=== PATIENT | female | born 1965 | race Caucasian/White ===

== ENCOUNTER → 2017-01-31 | Outpatient (CLI) | payer BC ==
--- NOTE | 2017-02-01 12:41 | MM ---
Reason for exam: screening (asymptomatic). Last mammogram was performed 1 year and 6 months ago. History: Patient is postmenopausal and has history of other cancer at age 46. Family history of breast cancer in maternal cousin at age 40, breast cancer in maternal aunt at age 34, premenopausal breast cancer in mother, and breast cancer in maternal aunt. Physical Findings: A clinical breast exam by your physician is recommended on an annual basis and results should be correlated with mammographic findings. MG 3D Screening Mammo W/Cad Bilateral CC and MLO view(s) were taken. Prior study comparison: July 28, 2015, bilateral MG 3d screening mammo w/cad. May 27, 2014, bilateral MG diagnostic mammo w CAD JOSH. The breast tissue is heterogeneously dense. This may lower the sensitivity of mammography. No significant changes when compared with prior studies. ASSESSMENT: Benign, BI-RAD 2 RECOMMENDATION: Routine screening mammogram of both breasts in 1 year.
== END ==
LOC: RADMAMWWP 10:54
PROVIDERS: ATTEND Obstetrics & Gynecology
DX: Z12.31 Encounter for screening mammogram for malignant neoplasm of breast (principal)
CPT/HCPCS: 77063; G0202

== ENCOUNTER → 2017-05-22 | Outpatient (CLI) | payer BC ==
[2017-05-22 12:46] LABS: Blood Urea Nitrogen 19 mg/dL (7-17)
== END | disposition home or self-care (01) ==
LOC: LABWHC1 11:12
PROVIDERS: ATTEND Psychiatry & Neurology Neurology
DX: Z13.89 Encounter for screening for other disorder (principal)
CPT/HCPCS: 36415; 82565; 84520

== ENCOUNTER → 2017-12-13 | Outpatient (CLI) | payer BC ==
--- NOTE | 2017-12-13 08:55 | CT ---
EXAMINATION TYPE: CT soft tissue neck w con DATE OF EXAM: 12/13/2017 HISTORY: Bulge Rt clavicle area, tenderness COMPARISON: NONE CT DLP: 390.3 mGycm. Automated Exposure Control for Dose Reduction was Utilized. TECHNIQUE: CT scan of the neck is performed with IV Contrast, patient injected with 100 mL of Isovue 300, axial images are obtained, coronal and sagittal reformatted images are reviewed. FINDINGS: A BB is placed at site of palpable abnormality right proximal clavicle axial image 18. Ther e is no suspicious solid or cystic mass or abnormal fluid collections identified at this level. Right -sided sternoclavicular joint and proximal clavicle are felt within normal limits and symmetric to th e opposite left side. Airway: There is prominence of the adenoid tonsils in the posterior nasopharynx and prominence of the hard palate causing nasopharyngeal airway narrowing. Correlate to exclude acute tonsillitis or upper respiratory infection. Region of epiglottis and vallecula is felt within normal limits. Thyroid glan d is not well visualized with tiny residual tissue seen axial image 31. There is mild to moderate und erlying emphysematous change in the visualized upper lungs. Parotid/submandibular glands: No gross abnormality seen. Carotid/Vascular Structures: No significant plaque at carotid bulb level bilaterally. Osseous Structures: Mild to moderate disc space narrowing with mild spurring C5-C6 level is seen. Other: There are some scattered prominent but subcentimeter lymph nodes throughout the neck bilateral ly. There is patchy opacity in the left maxillary sinus. IMPRESSION 1. No suspicious abnormality is seen at area of clinical concern in right proximal clavicle region to account for patient's symptoms. 2. Note is made of small 9 x 4 mm area of thyroid tissue axial image 31, patient has history of thyro idectomy, if this was for cancer, recurrent neoplasm cannot be excluded. Differential includes tiny f ocus of residual thyroid tissue. 3. Possible tonsillitis, correlate clinically. Possible mild acute left maxillary sinusitis, correlat e clinically.
== END | disposition home or self-care (01) ==
LOC: RADCTMAIN 07:36
PROVIDERS: ATTEND Otolaryngology
DX: R22.1 Localized swelling, mass and lump, neck (principal); M54.2 Cervicalgia; Z90.89 Acquired absence of other organs
CPT/HCPCS: 70491; Q9967

== ENCOUNTER → 2018-03-14 | Outpatient (CLI) | payer BC ==
--- NOTE | 2018-03-14 10:08 | BD ---
EXAMINATION TYPE: Axial Bone Density DATE OF EXAM: 03/14/2018 COMPARISON: Exam of 2016 CLINICAL HISTORY: Postmenopausal female. Osteoporosis screening. Height: 5 FT 3 1/2 IN Weight: 189 FRAX RISK QUESTIONS: History of Fracture in Adulthood: YES Secondary Osteoporosis: 3. Menopause before 45: YES Current Tobacco Use: YES RISK FACTORS HISTORY OF: Active: YES Postmenopausal woman: TOTAL HYST AGE 23 Poor Health: FAIR MEDICATIONS: Thyroid Medications: YES Which medication: SYNTHROID How Lon YEARS Additional Medications: SYNTHROID. LOSARTIN Additional History: PT HAS MS EXAM MEASUREMENTS: Bone mineral densitometry was performed using the Seguricel System. Bone mineral density as measured about the Lumbar spine is: ----- L1-L4(G/cm2): 1.072 T Score Values are as follows: ----- L2: -1.1 ----- L3: -0.2 ----- L4: -2.0 ----- L1-L4: -0.9 Bone mineral density has: DECREASED -0.6 % since study of: 2015 Bone mineral density about the R hip (g/cm2): 0.941 Bone mineral density about the L hip (g/cm2): 0.945 T Score values are as follows: -----R Neck: -0.7 -----L Neck: -0.7 -----R Total: 0.2 -----L Total: -0.1 Bone mineral density has: DECREASED -1.0 % since study of: 2015 IMPRESSION: Normal (Values between +1 and -1 indicate normal bone mass). Values approach osteopenia. Consider rep eating this study in 5 years or sooner if there is some new clinical indication. NOTE: T-SCORE=SD OF THE YOUNG ADULT MEAN.
--- NOTE | 2018-03-21 08:38 | MM ---
Reason for exam: screening (asymptomatic). Last mammogram was performed 1 year and 1 month ago. History: Patient is postmenopausal and has history of other cancer at age 46. Family history of breast cancer in maternal cousin at age 40, breast cancer in maternal aunt at age 34, premenopausal breast cancer in mother, and breast cancer in maternal aunt. MG 3D Screening Mammo W/Cad Bilateral CC and MLO view(s) were taken. Prior study comparison: January 31, 2017, bilateral MG 3d screening mammo w/cad. July 28, 2015, bilateral MG 3d screening mammo w/cad. The breast tissue is heterogeneously dense. This may lower the sensitivity of mammography. No suspicious abnormality. No significant changes when compared with prior studies. ASSESSMENT: Negative, BI-RAD 1 RECOMMENDATION: Routine screening mammogram of both breasts in 1 year.
== END | disposition home or self-care (01) ==
LOC: RADMAMWWP 08:07
PROVIDERS: ATTEND Family Medicine
DX: Z12.31 Encounter for screening mammogram for malignant neoplasm of breast (principal); Z13.820 Encounter for screening for osteoporosis
CPT/HCPCS: 77063; 77067; 77080

== ENCOUNTER → 2018-05-07 | Outpatient (CLI) | payer BC | LOC: LABWHC1 13:20 | PROVIDERS: ATTEND Physician Assistant | DX: Z01.818 Encounter for other preprocedural examination (principal); N28.9 Disorder of kidney and ureter, unspecified | CPT/HCPCS: 36415; 82565; 84520 ==

== ENCOUNTER → 2018-05-12 | Outpatient (CLI) | payer BC ==
[2018-05-12 15:24] LABS: Basophils # (A) 0.1 k/uL (0-0.2); Basophils % (A) 1 %; Eosinophils # (A) 0.1 k/uL (0-0.7); Eosinophils % (A) 2 %; HCT 41.6 % (34.0-46.0); HGB 13.6 gm/dL (11.4-16.0); Lymphocytes # (A) 3.1 k/uL (1.0-4.8); Lymphocytes % (A) 36 %; MCH 29.4 pg (25.0-35.0); MCHC 32.6 g/dL (31.0-37.0); MCV 90.1 fL (80.0-100.0); Mean Platelet Volume 6.8; Monocytes # (A) 0.4 k/uL (0-1.0); Monocytes % (A) 5 %; Neutrophils # (A) 4.9 k/uL (1.3-7.7); Neutrophils % (A) 56 %; Platelet Count 323 k/uL (150-450); RBC 4.61 m/uL (3.80-5.40); RDW 13.1 % (11.5-15.5); WBC 8.6 k/uL (3.8-10.6)
[2018-05-12 17:13] LABS: Erythrocyte Sedimentation Rate 21 mm/hr (0-20)
[2018-05-13 00:25] LABS: Cyclic Citrullinated Pep IgG NEGATIVE (NEGATIVE)
[2018-05-13 02:06] LABS: Rheumatoid Factor 13 IU/mL (0-15)
[2018-05-13 12:37] LABS: ALT 19 U/L (8-44); AST 19 U/L (13-35); C Reactive Protein 1.4 mg/dL (0.0-0.8); Carbon Dioxide 27.3 mmol/L (21.6-31.8); Chloride 107 mmol/L (96-109); Creatine Kinase 50 U/L (26-186); Glucose 97 mg/dL (70-110); Potassium 4.3 mmol/L (3.5-5.5); Sodium 141 mmol/L (135-145); Uric Acid 4.6 mg/dL (2.9-7.7)
[2018-05-14 12:19] LABS: HLA B27 NEGATIVE
== END | disposition home or self-care (01) ==
LOC: LABWHC1 14:23
PROVIDERS: ATTEND Orthopaedic Surgery
DX: G35 Multiple sclerosis (principal); E07.9 Disorder of thyroid, unspecified; I10 Essential (primary) hypertension; S43.21 Anterior subluxation and dislocation of sternoclavicular joint; S23.42 Sprain of sternum; M25.512 Pain in left shoulder
CPT/HCPCS: 36415; 80048; 82009; 82306; 82550; 83520; 84439; 84443; 84450; 84460; 84550; 85025; 85652; 86038; 86140; 86200; 86431; 86812

== ENCOUNTER 2018-05-20 07:55 | Day surgery (SDC) | payer BC ==
[2018-05-20 08:24] VITALS: TEMP 98.1
[2018-05-20] MEDS ORDERED: ALPRAZolam 0.5 MG TAB PO ONE (08:28)
[2018-05-20 10:16] VITALS: BP 115/59; PULSE 90; RESP 14
[2018-05-20 13:59] LABS: RBC, Body Fluid 3740 /uL
[2018-05-20 14:01] LABS: Nucleated Cells, Body Fluid 30 /uL
[2018-05-20 14:06] LABS: Mononuclear WBC,Body Fluid 59 %; Polynuclear WBC,Body Fluid 41 %; Total Cells Counted,Body Fluid 100
[2018-05-20 14:21] LABS: RBC, Body Fluid 7600 /uL
[2018-05-20 14:22] LABS: Appearance,BF Blood Tinged
[2018-05-20 14:25] LABS: Total Cells Counted,Body Fluid 100
[2018-05-20 14:26] LABS: Nucleated Cells, Body Fluid 15 /uL
--- NOTE | 2018-05-20 15:26 | US ---
Ultrasound guided aspiration right sternoclavicular joint Date: 05/20/2018 History: 52-year-old female with right shoulder pain. Procedure: 1. Ultrasound of the right sternoclavicular joint 2. Ultrasound-guided right SC joint aspiration. TECHNIQUE: The procedure, risks, and alternatives, were discussed with the patient, who requested that priti grace The consent form was signed, and teach-back occurred. The site/side of the procedure was marked wi th a line with participation by the patient. The accompanying paperwork was verified for consistency. A directed history and physical exam was performed prior to the procedure. Medication reconciliation was performed by ancillary personnel. A critical pause was performed with assisting personnel just prior to the procedure and the patient's identity was confirmed using 2 identifiers. Imaging guidance was utilized to select the precise skin entry point just prior to the procedure. Sca nning demonstrates pronounced distention of the right sternoclavicular joint. The distended joint cap jody is targeted for aspiration. The right sternoclavicular joint was prepped and draped in the usual sterile fashion and local 1% lid ocaine anesthesia was instilled. Under ultrasound guidance, an 18 gauge spinal needle was introduced into the right sternoclavicular j oint where aspiration was attempted. This yielded only a couple of drops of blood-tinged fluid. The n eedle and syringe were washed with sterile saline, and the wash was prepared as a specimen to send fo r laboratory analysis. Subsequently, 3 mL of sterile saline was injected into the sternoclavicular joint and subsequent aspi ration yielded a total of 5 mL of blood-tinged fluid which is also prepared as a specimen and sent fo r laboratory analysis. The needle was then removed. The patient tolerated the procedure well. There were no immediate complications. After the procedure, the patient's condition was unchanged. Es timated blood loss was minimal. IMPRESSION: Distended right sternoclavicular joint. Aspiration yielded only a couple of drops of blood-tinged flu id. The joint contents are likely too thick for adequate aspiration. 2 washes of the joint with steri le saline are prepared and sent for laboratory analysis.
== END 2018-05-20 10:15 | disposition home or self-care (01) ==
LOC: RADPROMAIN 07:55
PROVIDERS: ATTEND Orthopaedic Surgery
DX: S43.21 Anterior subluxation and dislocation of sternoclavicular joint (principal); S23.42 Sprain of sternum; G35 Multiple sclerosis; I10 Essential (primary) hypertension; E07.9 Disorder of thyroid, unspecified; Z79.899 Other long term (current) drug therapy; Z79.890 Hormone replacement therapy; Z91.81 History of falling
CPT/HCPCS: 20611; 87070; 87075; 87205; 89050; 89060

== ENCOUNTER → 2018-09-01 | Outpatient (CLI) | payer BC ==
[2018-09-01 12:21] LABS: Basophils % (A) 1 %; Eosinophils # (A) 0.2 k/uL (0-0.7); Eosinophils % (A) 3 %; HCT 40.7 % (34.0-46.0); HGB 13.3 gm/dL (11.4-16.0); Lymphocytes # (A) 2.5 k/uL (1.0-4.8); Lymphocytes % (A) 36 %; MCH 29.5 pg (25.0-35.0); MCHC 32.7 g/dL (31.0-37.0); Mean Platelet Volume 6.9; Monocytes # (A) 0.4 k/uL (0-1.0); Monocytes % (A) 5 %; Neutrophils # (A) 3.6 k/uL (1.3-7.7); Neutrophils % (A) 53 %; Platelet Count 340 k/uL (150-450); RBC 4.52 m/uL (3.80-5.40); RDW 14.3 % (11.5-15.5); WBC 6.8 k/uL (3.8-10.6)
[2018-09-01 13:31] LABS: Erythrocyte Sedimentation Rate 25 mm/hr (0-20)
[2018-09-01 16:23] LABS: African American GFR (CKD) 96.2 (60.0-200.0); Albumin 4.3 g/dL (3.80-4.90); Anion Gap 5.8 mmol/L (4.00-12.00); C Reactive Protein 1.1 mg/dL (0.0-0.8); Calcium 9.8 mg/dL (8.7-10.3); Carbon Dioxide 28.2 mmol/L (21.6-31.8); Potassium 4.1 mmol/L (3.5-5.5)
[2018-09-01 16:36] LABS: Cardiolipin Ab IgA Interp NEGATIVE (NEGATIVE); Cardiolipin IgA Antibody 1.7 U/mL; Cyclic Citrull Pep IgG Unit <0.5 U/mL; Cyclic Citrullinated Pep IgG NEGATIVE (NEGATIVE)
[2018-09-01 16:37] LABS: Cardiolipin Ab IgG Interp NEGATIVE (NEGATIVE)
[2018-09-01 16:38] LABS: Cardiolipin Ab IgM Interp Positive (NEGATIVE); Cardiolipin IgM Antibody 39.3 U/mL
[2018-09-01 17:01] LABS: Rheumatoid Factor 10 IU/mL (0-15)
[2018-09-01 17:09] LABS: Vitamin D 25 Hydroxy 37.8 ng/mL (30.0-100.0)
[2018-09-01 17:22] LABS: Beta 2 Microglobulin 1.46 mg/L (0.61-2.37)
[2018-09-02 13:21] LABS: APTT 45 Sec(s) (<43); APTT 1:1 Mix 48 Sec(s) (<43); DRVVT 1:1 Mix 42 Sec(s) (<44); Dilute Russell Viper Venom 53 Sec(s) (<44); Hexagonal Phase Neutralization Positive (Negative)
[2018-09-03 13:42] LABS: Vitamin D, 1, 25-Dihydroxy 56 pg/mL (20 - 79)
== END | disposition home or self-care (01) ==
LOC: LABWHC1 11:27
PROVIDERS: ATTEND Internal Medicine Rheumatology
DX: M25.50 Pain in unspecified joint (principal); M06.4 Inflammatory polyarthropathy; Z79.899 Other long term (current) drug therapy
CPT/HCPCS: 36415; 80051; 82040; 82232; 82306; 82310; 82565; 82652; 84450; 84460; 84520; 85025; 85300; 85613; 85652; 85730; 86140; 86147; 86200; 86431; 86480; 86780

== ENCOUNTER → 2018-11-21 | Outpatient (CLI) | payer BC ==
--- NOTE | 2018-11-21 16:44 | MR ---
MR pelvis with and without contrast HISTORY: Arthritis, chronic bilateral low back pain Multiplanar multisequence and postcontrast images through the pelvis following 8.5 cc Gadavist IV Correlation to prior MRI 05/09/2018 Hip joints show normal appearance. There is no evident joint effusion. Articular cartilage signal is maintained. No evident labral tear. There is some increased signal present at the level of the gluteu s tendons insertions bilaterally, there may be partial tears or trochanteric bursitis. Degenerative disc changes are present in the visualized spine with some facet arthropathy. In the sig moid colon, there is diverticular change. Sacroiliac joints are symmetric, there is no evident erosion, hypertrophic change, or ankylosis. No a bnormal enhancement following contrast administration. IMPRESSION: Degenerative disc disease. Possible gluteus medius medius tendon insertional partial tear s or trochanteric bursitis. Diverticulosis and additional findings above.
== END | disposition home or self-care (01) ==
LOC: RADMRIMAIN 08:42
PROVIDERS: ATTEND Internal Medicine Rheumatology
DX: M54.5 Low back pain (principal); G89.29 Other chronic pain
CPT/HCPCS: 72197; A9585

== ENCOUNTER → 2019-01-07 | Outpatient (CLI) | payer BC ==
[2019-01-07 13:47] LABS: African American GFR (CKD) >90 (>60 ml/min/1.73 sqM); Anion Gap 7 mmol/L; Blood Urea Nitrogen 17 mg/dL (7-17); Carbon Dioxide 30 mmol/L (22-30); Chloride 104 mmol/L (98-107); Potassium 4.3 mmol/L (3.5-5.1); Sodium 141 mmol/L (137-145)
[2019-01-07 13:48] LABS: HCT 41.2 % (34.0-46.0); HGB 13.4 gm/dL (11.4-16.0); MCH 29.6 pg (25.0-35.0); MCHC 32.5 g/dL (31.0-37.0); MCV 90.9 fL (80.0-100.0); Platelet Count 407 k/uL (150-450); RBC 4.54 m/uL (3.80-5.40); RDW 12.9 % (11.5-15.5); WBC 9.1 k/uL (3.8-10.6)
== END | disposition home or self-care (01) ==
LOC: LABWHC1 12:21
PROVIDERS: ATTEND Internal Medicine Interventional Cardiology
DX: Z01.812 Encounter for preprocedural laboratory examination (principal); I10 Essential (primary) hypertension
CPT/HCPCS: 36415; 80051; 82565; 84520; 85027

== ENCOUNTER 2019-01-13 06:26 | Day surgery (SDC) | payer BC ==
[2019-01-09 12:27] VITALS: BMI 33.1
[2019-01-13] MEDS ORDERED: ALPRAZolam 0.5 MG TAB PO PRN (06:37)
[2019-01-13] MEDS ORDERED: SODIUM CHLORIDE 0.9% 1,000 ML in EMPTY BAG 1 BAG IV ONE (06:37)
[2019-01-13] MEDS ORDERED: ALPRAZolam 0.25 MG TAB PO PRN (06:37)
[2019-01-13] MEDS ORDERED: NITROGLYCERIN SL TABS 0.4 MG TAB SUBLINGUAL PRN (06:37)
[2019-01-13] MEDS ORDERED: ASPIRIN 325 MG TAB PO ONE (07:00)
[2019-01-13] MEDS ORDERED: ATORVASTATIN 80 MG TAB PO ONE (07:00)
[2019-01-13 07:01] VITALS: RESP 16; TEMP 98.2
[2019-01-13] MEDS ORDERED: HEPARIN SODIUM 1,000 UN/ML (10ML VL) ONE (07:31)
[2019-01-13] MEDS ORDERED: LIDOCAINE 1% INJ 10MG/ML (20 ML MDV) ONE (07:31)
[2019-01-13] MEDS ORDERED: VERAPAMIL 2.5 MG/ML 2 ML AMP ONE (07:31)
[2019-01-13] MEDS ORDERED: MIDAZOLAM 2 MG/2 ML VIAL IV ONE (07:43)
[2019-01-13] MEDS ORDERED: LIDOCAINE 1% INJ 10MG/ML (20 ML MDV) SQ ONE (07:43)
[2019-01-13] MEDS: VERAPAMIL SYRINGE (5 MG/10 ML) INTRAARTER ONE ×2 (07:45→07:54)
[2019-01-13] MEDS ORDERED: IOPAMIDOL-370 125ML BTL INJ ONE (07:54)
[2019-01-13] MEDS ORDERED: RX INFO: IV CONTRAST WAS GIVEN 1 EACH MISC MISCELLANE PRN (08:00)
[2019-01-13] MEDS ORDERED: SODIUM CHLORIDE 0.9% 1,000 ML IV SCH (08:00)
--- NOTE | 2019-01-13 08:06 | P.PCN ---
Date of Procedure: 01/13/19 Operative Findings: CARDIAC CATHETERIZATION PERFORMING PHYSICIAN: Prasanth Odell MD, RPVI PROCEDURE PERFORMED: 1. Selective right and left coronary angiogram 2. Left heart catheterization INDICATION: This is a pleasant 53-year-old female patient with a past medical history significant for smoking and significant family history of coronary artery disease continues to have chest discomfort with exertion concerning for severe underlying coronary artery disease. Because of that a heart catheterization was advised. COMPLICATION: None APPROACH: Right radial artery LEVEL OF SEDATION: Moderate sedation duration of 30 minutes PROCEDURE DESCRIPTION: After obtaining an informed consent, the patient was brought to cardiac laborer [facility]. Local anesthesia was performed using lidocaine subcutaneously. The right radial artery was cannulated using Seldinger technique, the guidewire passed easily, following that we advanced a 5-Latvian sheath dilator assembly, the wire and dilator were removed and sheath was flushed. Following that, 2 mg of verapamil along with 5000 unit heparin were given. Selective right and left coronary angiogram using a 6-Latvian JR4 and JL 3.5 catheters. Following that we did left heart catheterization using 6-Latvian pigtail catheter. The procedure was completed there was no complication. SELECTIVE CORONARY ANGIOGRAM: The right coronary artery: Is a large caliber vessel and a dominant vessel. The proximal RCA is angiographically normal. The mid RCA has intermediate disease appeared to be in the range of 40-50%. The RCA distally appeared to be angiographically normal and bifurcates into PDA and PLV branches and both appeared to be an giographically normal. Left main: Short but angiographically normal. The left circumflex: It is a large caliber vessel. Its angiographically normal. In the midportion gives rises into a large OM branch which seems to be angiographically normal. The left anterior descending artery: It is a large caliber vessel. Its angiographically normal. In the proximal portion gives rises into a diagonal branch which seems to be angiographically normal. HEMODYNAMICS: The LVEDP was 10 mmHg was about 10 mm gradient across aortic valve CONCLUSION: 1. Intermediate disease involving the mid RCA. 2. Normal LVEDP 3. Mild gradient across aortic valve POSTPROCEDURE MANAGEMENT: 1. Aggressive cholesterol control 2. Smoking cessation 3. Follow-up with the patient
[2019-01-13 12:03] VITALS: PULSE 74
[2019-01-13 14:21] VITALS: BP 116/75
== END 2019-01-13 13:30 | disposition home or self-care (01) ==
LOC: CATHCVL 06:26
PROVIDERS: ATTEND Internal Medicine Interventional Cardiology
DX: I25.110 Atherosclerotic heart disease of native coronary artery with unstable angina pectoris (principal); I10 Essential (primary) hypertension; E78.00 Pure hypercholesterolemia, unspecified; Z82.49 Family history of ischemic heart disease and other diseases of the circulatory system; E78.5 Hyperlipidemia, unspecified; F17.210 Nicotine dependence, cigarettes, uncomplicated; Z79.890 Hormone replacement therapy; Z79.899 Other long term (current) drug therapy
CPT/HCPCS: 93458; C1769; C1894; J2250; J2001; J1644; Q9967

== ENCOUNTER → 2019-03-02 | Outpatient (CLI) | payer BC ==
[2019-03-02 12:01] LABS: Appearance,Urine Clear (Clear); Bacteria,Urine Rare /hpf; Bilirubin,Urine Negative (Negative); Blood,Urine Negative (Negative); Color,Urine Yellow; Glucose,Urine (UA) Negative (Negative); Ketones,Urine Negative (Negative); Leukocyte Esterase,Urine Moderate (Negative); Mucus,Urine Rare /hpf; Nitrite,Urine Negative (Negative); Protein,Urine Negative (Negative); RBC,Urine 1 /hpf (0-5); Specific Gravity,Urine 1.025 (1.001-1.035); Squamous Epithelial Cell,Urine 6 /hpf (0-4); Urobilinogen,Urine <2.0 mg/dL (<2.0); WBC,Urine 1 /hpf (0-5)
[2019-03-02 12:39] LABS: Basophils % (A) 0 %; Eosinophils # (A) 0.2 k/uL (0-0.7); Eosinophils % (A) 2 %; HCT 42.4 % (34.0-46.0); HGB 13.7 gm/dL (11.4-16.0); Lymphocytes # (A) 2.3 k/uL (1.0-4.8); Lymphocytes % (A) 29 %; MCHC 32.4 g/dL (31.0-37.0); MCV 92.7 fL (80.0-100.0); Mean Platelet Volume 7.6; Monocytes # (A) 0.4 k/uL (0-1.0); Monocytes % (A) 5 %; Neutrophils # (A) 4.9 k/uL (1.3-7.7); Neutrophils % (A) 63 %; Platelet Count 367 k/uL (150-450); RBC 4.57 m/uL (3.80-5.40); RDW 13.3 % (11.5-15.5); WBC 7.8 k/uL (3.8-10.6)
[2019-03-02 14:41] LABS: Erythrocyte Sedimentation Rate 25 mm/hr (0-20)
[2019-03-02 16:45] LABS: African American GFR (CKD) 96.2 (60.0-200.0); Albumin 4.4 g/dL (3.80-4.90); Albumin/Globulin Ratio 1.91 (1.60-3.17); Anion Gap 4.9 mmol/L (4.00-12.00); Calcium 9.4 mg/dL (8.7-10.3); Carbon Dioxide 30.1 mmol/L (21.6-31.8); Chol/HDL Ratio 4.08; Globulin 2.3 g/dL (1.6-3.3); LDL Cholesterol,Calculated 133.4 mg/dL (0.0-131.0); Potassium 4.7 mmol/L (3.5-5.5); Total Bilirubin 0.5 mg/dL (0.3-1.2); Total Protein 6.7 g/dL (6.2-8.2); VLDL Calculation 23.6 mg/dL (5.00-40.00)
[2019-03-02 16:54] LABS: T4, Free (Free Thyroxine) 1.4 ng/dL (0.80-1.80)
[2019-03-02 16:58] LABS: Hemoglobin A1C 6.2 % (4.0-6.0)
== END | disposition home or self-care (01) ==
LOC: LABWHC1 10:17
PROVIDERS: ATTEND Internal Medicine Rheumatology
DX: M06.4 Inflammatory polyarthropathy (principal); Z79.899 Other long term (current) drug therapy
CPT/HCPCS: 36415; 80053; 80061; 81001; 82306; 83036; 84439; 84443; 85025; 85652; 86140

== ENCOUNTER 2019-08-28 10:28 | Inpatient (IN) | payer BC ==
[2019-08-28] MEDS ORDERED: fentaNYL (PF) 50 MCG/ML 2 ML AMP ONE (10:43)
[2019-08-28] MEDS ORDERED: SODIUM CHLORIDE 0.9% 1,000 ML IV ONE (10:44)
[2019-08-28] MEDS ORDERED: LIDOCAINE 1% INJ 10MG/ML (20 ML MDV) SQ ONE (10:44)
[2019-08-28] MEDS ORDERED: MIDAZOLAM 2 MG/2 ML VIAL IV ONE (10:45)
[2019-08-28] MEDS ORDERED: fentaNYL (PF) 50 MCG/ML 2 ML AMP IV ONE (10:45)
[2019-08-28] MEDS ORDERED: TICAGRELOR 90 MG TAB ONE (10:54)
[2019-08-28] MEDS ORDERED: BIVALIRUDIN BOLUS 250 MG/50 ML IV ONE (10:58)
[2019-08-28] MEDS ORDERED: TICAGRELOR 90 MG TAB PO ONE (11:00)
[2019-08-28] MEDS ORDERED: BIVALIRUDIN 250 MG in SODIUM CHLORIDE 0.9% 50 ML IV ONE (11:03)
[2019-08-28] MEDS ORDERED: ATROPINE SULFATE 0.1 MG/ML 10ML SYRINGE IV ONE (11:07)
[2019-08-28] MEDS ORDERED: IOPAMIDOL-370 100ML BTL INJ ONE (11:10)
[2019-08-28 11:29] LABS: Basophils % (A) 0 %; Eosinophils # (A) 0.1 k/uL (0-0.7); Eosinophils % (A) 2 %; HCT 37.9 % (34.0-46.0); HGB 12.4 gm/dL (11.4-16.0); Lymphocytes # (A) 1.6 k/uL (1.0-4.8); Lymphocytes % (A) 25 %; MCH 29.3 pg (25.0-35.0); MCHC 32.8 g/dL (31.0-37.0); MCV 89.5 fL (80.0-100.0); Mean Platelet Volume 7.1; Monocytes # (A) 0.3 k/uL (0-1.0); Monocytes % (A) 5 %; Neutrophils # (A) 4.2 k/uL (1.3-7.7); Neutrophils % (A) 66 %; Platelet Count 305 k/uL (150-450); RBC 4.23 m/uL (3.80-5.40); RDW 12.9 % (11.5-15.5); WBC 6.4 k/uL (3.8-10.6)
[2019-08-28] MEDS ORDERED: ATROPINE SULFATE 0.1 MG/ML 10ML SYRINGE IV PRN (11:35)
[2019-08-28] MEDS ORDERED: NITROGLYCERIN SL TABS 0.4 MG TAB SUBLINGUAL PRN (11:35)
[2019-08-28] MEDS ORDERED: RX INFO: IV CONTRAST WAS GIVEN 1 EACH MISC MISCELLANE PRN (11:35)
[2019-08-28] MEDS ORDERED: MAG HYDROX/AL HYDROX/SIMETH 30 ML CUP PO PRN (11:35)
[2019-08-28 11:44] LABS: ALT 13 U/L (4-34); AST 21 U/L (14-36); African American GFR (CKD) >90 (>60 ml/min/1.73 sqM); Albumin 3.5 g/dL (3.5-5.0); Alkaline Phosphatase 61 U/L (38-126); Anion Gap 7 mmol/L; Blood Urea Nitrogen 17 mg/dL (7-17); Calcium 8.2 mg/dL (8.4-10.2); Carbon Dioxide 22 mmol/L (22-30); Chloride 107 mmol/L (98-107); Glucose 130 mg/dL (74-99); Non-African American GFR(CKD) >90 (>60 ml/min/1.73 sqM); Potassium 3.5 mmol/L (3.5-5.1); Sodium 136 mmol/L (137-145); Total Bilirubin 0.5 mg/dL (0.2-1.3); Total Protein 6.5 g/dL (6.3-8.2)
[2019-08-28] MEDS ORDERED: SODIUM CHLORIDE 0.9% 1,000 ML IV SCH (11:45)
[2019-08-28] MEDS: NICOTINE 21MG/24HR PATCH TRANSDERM SCH (15:16)
[2019-08-28 15:38] LABS: Glucose,Whole Blood 92 mg/dL (75-99)
--- NOTE | 2019-08-28 15:59 | CONS ---
CONSULTATION CHIEF COMPLAINT: Chest pain. This is a 54-year-old lady with history of hypertension, dyslipidemia, smoking and strong family history of premature coronary artery disease who presents to hospital with chest pain. She states that she started having precordial chest pressure early this morning and it gradually got worse and worse around 8 to 9:00. She called EMS, where EMS an EKG that showed acute inferior wall myocardial infarction and she was sent to cardiac catheterization lab urgently. I am seeing her in the rn lab. The patient is in pain and distress but hemodynamically stable. Her EKG shows acute inferior wall myocardial infarction. I advised her to undergo emergent cardiac catheterization with a view to performing angioplasty. PAST MEDICAL HISTORY: Past medical history is significant for hypertension, dyslipidemia. MEDICATIONS: I do not have a list with me. ALLERGIES: DENIES ANY. FAMILY HISTORY: Significant for premature coronary artery disease. SOCIAL HISTORY: Significant for smoking. There is no history of EtOH abuse or drug abuse. REVIEW OF SYSTEMS: HEENT is unremarkable. CARDIAC: As described above. RESPIRATORY: Negative. GI: Negative. GENITOURINARY: Negative. ALLERGY: Negative. IMMUNOLOGY: Negative. SKIN: Negative. MUSCULOSKELETAL: Significant for arthritis. PSYCHOSOCIAL: Negative. ENDOCRINE: Negative. DERMATOLOGY: Negative. HEMATOLOGICAL: Significant for some coagulopathy. CONSTITUTIONAL: Negative. ONCOLOGICAL: Negative. PHYSICAL EXAMINATION: Comfortable at rest. Heart rate is 70 beats per minute. Blood pressure is 140/70, respiratory rate is 18. There is no jugular venous distention. Carotid upstroke is normal. There is no bruit. Chest exam reveals good air entry bilaterally. Heart exam reveals first and second heart sounds. No gallop. Abdomen is soft. Examination of extremities did not reveal any edema. Peripheral pulses are felt. EKG shows acute inferior wall myocardial infarction. LABORATORY DATA: Labs are not done. ASSESSMENT: Acute inferior wall myocardial infarction. PLAN: Patient will undergo emergent cardiac catheterization. MMODL / IJN: [id number] /
--- NOTE | 2019-08-28 15:59 | CC ---
CARDIAC CATHETERIZATION REPORT CARDIAC CATHETERIZATION: INDICATION: Acute inferior wall myocardial infarction. PROCEDURE NOTE: After obtaining informed consent, left heart catheterization and coronary angiogram were performed via the right femoral artery using standard James catheters. Patient tolerated the procedure well without any obvious immediate complications. FINDINGS: HEMODYNAMICS: Left ventricular end-diastolic pressure is 18 to 20 mm. There is no significant gradient across the aortic valve. LEFT VENTRICULOGRAM: Left ventriculogram was not performed. ANGIOGRAPHIC DATA: LEFT MAIN CORONARY ARTERY: Left main coronary artery is a normal-sized vessel and is free of stenosis. It divides into left anterior descending coronary artery and circumflex coronary artery. LAD shows a focal area of 70% stenosis involving mid portion. Circumflex coronary artery and its branches are free of significant disease. RIGHT CORONARY ARTERY: Right coronary artery is totally occluded proximally. There are [id number] collaterals. CONCLUSION: 1. Acutely occluded proximal right coronary artery. 2. Seventy percent stenosis involving mid LAD. PLAN: Patient will undergo angioplasty of the right coronary artery and the LAD will be stented at a later time. MMODL / IJN: [id number] /
--- NOTE | 2019-08-28 16:07 | PTCA ---
PERCUTANEOUSTRANS CORORONARY ANGIOGRAPHY Ms. Rodriguez is a 54-year-old female with a history of hypertension, chronic tobacco use and family history of premature coronary artery disease who presented with an acute inferior wall myocardial infarction, underwent cardiac catheterization by Dr. Mena and was found to have a totally occluded right coronary artery. In view of that, recommendation was made regarding angioplasty and stenting. The procedure, its risks and complications were discussed with the patient, who was in full understanding and agreement. PROCEDURE DESCRIPTION: A 6-Polish FR4 guiding catheter was introduced into the system. After cannulating the right coronary ostium, a 0.014 balanced medium weight J-wire was advanced across the lesion, positioned distally, then a 2.5 x 12 mm Trek balloon was advanced and two inflations to a maximum of 10 atmospheres were done. Following that, a 3.0 x 23 mm Xience Tavia stent was deployed, post-dilated at 16 atmospheres. Following that the balloon was removed and a 3.25 x 15 mm NC Trek balloon was advanced and two inflations to a maximum of 14 atmospheres were done. After the last inflation, after appropriate wait, the balloon and the guidewire were withdrawn back into the guiding catheter. Images were obtained and repeated. Those images revealed stable successful stenting. At that point, the guiding catheter, the balloon and the guidewire were removed. The sheath was removed. Hemostasis was obtained with deployment of Angio-Seal. There was no immediate complication. Patient was returned to her room in stable condition. Of note, the patient received Angiomax per protocol as well as an oral loading dose of Brilinta. Her chest discomfort resolved during the procedure and her EKG changes improved. RESULTS: Successful stenting of a totally occluded mid right coronary artery with reduction of stenosis from 100% to 0%. RECOMMENDATIONS: Patient will be continued on aspirin, Brilinta, beta blockers and statin. The importance of dual antiplatelet treatment was discussed with the patient and her family, who are in full understanding and agreement. Duration of procedure was 22 minutes. MMODL / ANDREWN: [id number] /
--- NOTE | 2019-08-28 16:13 | LTR ---
August 28, 2019 To: Dr. Quan Re: Aysha Rodriguez (61) Dear Dr. Quan: I had the pleasure of performing coronary angioplasty and stenting on Mrs. Rodriguez at [facility] on August 27, and a full copy of the procedure note will be forwarded to you. In brief, she was found to have an acutely occluded mid right coronary artery and underwent successful stenting of that vessel using a drug-eluting stent. I am hopeful that this procedure will stabilize her status. Thank you for allowing me to participate in her care. Please feel free to call with any questions. Sincerely yours, Juliocesar Teresa M.D. NELLY / OSMANY: [id number] /
[2019-08-28] MEDS: METOPROLOL TARTRATE 25 MG TAB PO SCH (20:35)
[2019-08-28] MEDS: TICAGRELOR 90 MG TAB PO SCH (20:35)
[2019-08-28] MEDS: ATORVASTATIN 80 MG TAB PO SCH ×2 (20:37→21:47)
[2019-08-28] MEDS: ZOLPIDEM 5 MG TAB PO PRN (22:31)
[2019-08-29 06:09] LABS: HCT 37.7 % (34.0-46.0); HGB 12.9 gm/dL (11.4-16.0); MCH 31.4 pg (25.0-35.0); MCHC 34.2 g/dL (31.0-37.0); MCV 91.9 fL (80.0-100.0); Mean Platelet Volume 7.1; Platelet Count 294 k/uL (150-450); RBC 4.11 m/uL (3.80-5.40); RDW 12.8 % (11.5-15.5); WBC 7.5 k/uL (3.8-10.6)
[2019-08-29 06:36] LABS: African American GFR (CKD) >90 (>60 ml/min/1.73 sqM); Anion Gap 5 mmol/L; Blood Urea Nitrogen 12 mg/dL (7-17); Calcium 8.6 mg/dL (8.4-10.2); Carbon Dioxide 27 mmol/L (22-30); Chloride 108 mmol/L (98-107); Cholesterol 173 mg/dL (<200); Glucose 131 mg/dL (74-99); HDL Cholesterol 31 mg/dL (40-60); LDL Cholesterol,Calculated 112 mg/dL (0-99); Non-African American GFR(CKD) >90 (>60 ml/min/1.73 sqM); Potassium 4.4 mmol/L (3.5-5.1); Sodium 140 mmol/L (137-145); Triglycerides 150 mg/dL (<150)
[2019-08-29] MEDS: LEVOTHYROXINE 137 MCG TAB PO SCH (06:36)
[2019-08-29] MEDS: ASPIRIN 81 MG PO SCH (09:01)
[2019-08-29] MEDS: METOPROLOL TARTRATE 25 MG TAB PO SCH ×2 (09:01→20:52)
[2019-08-29] MEDS: TICAGRELOR 90 MG TAB PO SCH ×2 (09:01→20:53)
[2019-08-29] MEDS: NICOTINE 21MG/24HR PATCH TRANSDERM SCH (09:01)
[2019-08-29] MEDS: LOSARTAN 25 MG TAB PO SCH (09:01)
--- NOTE | 2019-08-29 11:05 | PN ---
PROGRESS NOTE Aysha is a 54-year-old lady who is admitted to hospital with acute anterior wall myocardial infarction. Underwent emergent cardiac catheterization and angioplasty of right coronary artery. This morning, she is doing fine and is free of chest pain, difficulty in breathing or palpitations. EXAM: Comfortable at rest. Vital signs are stable. There is no jugular venous distention. Carotid upstroke is normal. There is no bruit. Chest exam reveals good air entry bilaterally. Heart exam reveals first and second heart sounds. No gallop. Exam of extremities did not reveal any edema. Groin is free of bleeding or hematoma. LABS: Show a peak troponin of 13. LDL cholesterol is 112, potassium is 4.4, creatinine is 0.5, hemoglobin is 12.9. ASSESSMENT: Acute inferior wall myocardial infarction, cath and angioplasty of [place] right coronary artery. The patient is doing well. She will continue current medications. I will review the 2D echo that was done today. She has a lesion in the LAD that will be addressed in the outpatient setting. She is currently on aspirin, Lipitor, Cozaar, Lopressor, and Brilinta, which will be continued. MMODL / IJN: [id number] /
[2019-08-29 13:08] VITALS: BMI 34.0
--- NOTE | 2019-08-29 13:09 | ECHOF ---
Referral Reason:mi MEASUREMENTS -------- HEIGHT: 162.6 cm WEIGHT: 88.5 kg BP: 112/61 RVIDd: 3.2 cm (< 3.3) IVSd: 1.2 cm (0.6 - 1.1) LVIDd: 3.7 cm (3.9 - 5.3) LVPWd: 1.3 cm (0.6 - 1.1) IVSs: 1.7 cm LVIDs: 2.7 cm LVPWs: 1.7 cm LA Diam: 3.4 cm (2.7 - 3.8) LAESV Index (A-L): 21.61 ml/m Ao Diam: 3.3 cm (2.0 - 3.7) AV Cusp: 1.7 cm (1.5 - 2.6) MV EXCURSION: 15.618 mm (> 18.000) MV EF SLOPE: 71 mm/s (70 - 150) EPSS: 1.1 cm MV E Micah: 0.97 m/s MV DecT: 193 ms MV A Micah: 1.01 m/s MV E/A Ratio: 0.96 FINDINGS -------- Sinus rhythm. This was a technically adequate study. The left ventricular size is normal. There is borderline concentric left ventricular hypertrophy. Overall left ventricular systolic function is normal with, an EF between 60 - 65 %. The right ventricle is normal in size. Normal LA size by volume 22+/-6 ml/m2. The right atrium is normal in size. Interatrial and interventricular septum intact. There is mild aortic valve sclerosis. The mitral valve leaflets are mildly thickened. There is trace to mild mitral regurgitation. The tricuspid valve appears structurally normal. Trace/mild (physiologic) pulmonic regurgitation. The aortic root size is normal. Normal inferior vena cava with normal inspiratory collapse consistent with estimated right atrial pre ssure of 5 mmHg. The inferior vena cava is mildly dilated. There is no pericardial effusion. CONCLUSIONS -------- 1. Sinus rhythm. 2. This was a technically adequate study. 3. The left ventricular size is normal. 4. There is borderline concentric left ventricular hypertrophy. 5. Overall left ventricular systolic function is normal with, an EF between 60 - 65 %. 6. The right ventricle is normal in size. 7. Normal LA size by volume 22+/-6 ml/m2. 8. The right atrium is normal in size. 9. Interatrial and interventricular septum intact. 10. There is mild aortic valve sclerosis. 11. The mitral valve leaflets are mildly thickened. 12. There is trace to mild mitral regurgitation. 13. The tricuspid valve appears structurally normal. 14. Trace/mild (physiologic) pulmonic regurgitation. 15. The aortic root size is normal. 16. Normal inferior vena cava with normal inspiratory collapse consistent with estimated right atrial pressure of 5 mmHg. 17. The inferior vena cava is mildly dilated. 18. There is no pericardial effusion. PROGRAM MANAGEMENT MANAGER: Elaine Song RDCS
--- NOTE | 2019-08-29 19:06 | P.HPIM ---
History of Present Illness This is a pleasant 54 years old female with past medical history of hypertension, hypothyroidism, cigarette smoker, strong family history of premature coronary artery disease, presents because of chest pressure found to have elevated troponin 0.08, 13 and 11. Patient has been evaluated by sports therapist and found to have inferior myocardial infarction and STEMI. Patient underwent emergent cardiac angiography with right coronary artery disease status post stenting of the RCA. Postprocedure was in the ICU, she is comfortable with no chest pain or dyspnea. Her vitals are stable. Labs with CBC and BMP are unremarkable Review of Systems CONSTITUTIONAL: No fever, no malaise, no fatigue. HEENT: No recent visual problems or hearing problems. Denied any sore throat. CARDIOVASCULAR: No orthopnea, PND, no palpitations, no syncope. PULMONARY: No shortness of breath, no cough, no hemoptysis. GASTROINTESTINAL: No diarrhea, no nausea, no vomiting, no abdominal pain. Normoactive bowel sounds. NEUROLOGICAL: No headaches, no weakness, no numbness. HEMATOLOGICAL: Denies any bleeding or petechiae. GENITOURINARY: Denies any burning micturition, frequency, or urgency. MUSCULOSKELETAL/RHEUMATOLOGICAL: Denies any joint pain, swelling, or any muscle pain. ENDOCRINE: Denies any polyuria or polydipsia. Past Medical History Past Medical History: Eye Disorder, Hypertension, Musculoskeletal Disorder, Neurologic Disorder, Thyroid Disorder Additional Past Medical History / Comment(s): OCC FAST HR. RRMS. HX PRE- MELANOMA OF SKIN. HX GOITER. arthiritis History of Any Multi-Drug Resistant Organisms: None Reported Past Surgical History: Section, Cholecystectomy, Hysterectomy, Orthopedic Surgery Additional Past Surgical History / Comment(s): THYROIDECTOMY. LT FOOT FUSION. Left CTR. LT CATARACT EXC. Past Anesthesia/Blood Transfusion Reactions: No Reported Reaction Past Psychological History: No Psychological Hx Reported Smoking Status: Current every day smoker Past Alcohol Use History: None Reported Past Drug Use History: None Reported - Past Family History Father Family Medical History: Cancer, Coronary Artery Disease (CAD), Hypertension, Myocardial Infarction (LA) Mother Family Medical History: Cancer, Deep Vein Thrombosis (DVT) Medications and Allergies Home Medications Medication Instructions Recorded Confirmed Type Levothyroxine Sodium [Synthroid] 137 mcg PO DAILY 11/08/15 08/28/19 History Hydroxychloroquine Sulfate 200 mg PO BID 01/09/19 08/28/19 History [Plaquenil] Verapamil Sr [Isoptin Sr] 180 mg PO DAILY 01/13/19 08/28/19 History Ergocalciferol [Vitamin D2 50,000 unit PO Q7D 08/28/19 08/28/19 History (DRISDOL)] Hydrochlorothiazide [Hydrodiuril] 12.5 mg PO DAILY 08/28/19 08/28/19 History Losartan Potassium [Cozaar] 50 mg PO DAILY 08/28/19 08/28/19 History Allergies Allergy/AdvReac Type Severity Reaction Status Date / Time adhesive AdvReac RED, Verified 08/28/19 11:30 ITCHING STEROIDS AdvReac Rapid Uncoded 01/09/19 12:10 Heart Rate,redness Physical Exam Vitals: Vital Signs Temp Pulse Resp BP Pulse Ox 08/29/19 14:00 75 19 94 L 08/29/19 13:00 65 11 L 96 08/29/19 12:00 98.4 F 70 17 124/71 94 L 08/29/19 11:00 67 13 94 L 08/29/19 10:00 80 18 130/75 95 08/29/19 09:00 75 14 91 L 08/29/19 08:00 97.8 F 69 15 122/85 96 08/29/19 07:00 87 11 L 105/61 97 08/29/19 06:00 68 18 112/61 95 08/29/19 05:00 79 12 120/63 98 08/29/19 04:00 75 8 L 97 08/29/19 03:00 89 24 100/52 94 L 08/29/19 02:00 76 17 103/62 96 08/29/19 01:00 84 18 111/55 93 L 08/29/19 00:00 98 F 75 20 102/49 93 L 08/28/19 23:03 66 19 93 L 08/28/19 23:00 60 21 95/49 94 L 08/28/19 22:30 59 L 16 127/113 97 08/28/19 22:00 64 15 133/74 94 L 08/28/19 21:30 68 15 122/78 97 08/28/19 21:00 82 20 122/78 91 L 08/28/19 20:30 70 15 124/74 95 06/26/20 20:00 98.5 F 67 14 133/67 92 L 08/28/19 19:30 72 18 122/65 98 08/28/19 19:00 62 17 119/63 98 08/28/19 18:30 61 13 140/62 99 08/28/19 18:00 73 14 120/83 95 08/28/19 17:30 58 L 12 120/70 98 Intake and Output 08/29/19 08/29/19 08/29/19 06:59 14:59 22:59 Intake Total 300 360 100 Balance 300 360 100 Intake: IV 300 360 100 Sodium Chloride 0.9% 1, 300 360 100 000 ml @ 100 mls/hr IV . Q10H SALAS Rx#:[id number] Other: # Voids 1 2 Weight 89.9 kg 89.9 kg GENERAL: The patient is alert and oriented x3, not in any acute distress. Well developed, well nourished. HEENT: Pupils are round and equally reacting to light. EOMI. No scleral icterus. No conjunctival pallor. Normocephalic, atraumatic. No pharyngeal erythema. No thyromegaly. CARDIOVASCULAR: S1 and S2 present. No murmurs, rubs, or gallops. PULMONARY: Chest is clear to auscultation, no wheezing or crackles. ABDOMEN: Soft, nontender, nondistended, normoactive bowel sounds. No palpable organomegaly. MUSCULOSKELETAL: No joint swelling or deformity. EXTREMITIES: No cyanosis, clubbing, or pedal edema. NEUROLOGICAL: Gross neurological examination did not reveal any focal deficits. SKIN: No rashes. No petechiae Results CBC & Chem 7: 08/29/19 05:47 08/29/19 05:47 Labs: Abnormal Lab Results - Last 24 Hours (Table) 08/28/19 08/28/19 08/29/19 Range/Units 17:04 23:08 05:47 Chloride 108 H (98-107) mmol/L Glucose 131 H (74-99) mg/dL Troponin I 13.200 H* 11.600 H* (0.000-0.034) ng/mL Triglycerides 150 H (<150) mg/dL LDL Cholesterol, Calc 112 H (0-99) mg/dL HDL Cholesterol 31 L (40-60) mg/dL Thrombosis Risk Factor Assmnt - Choose All That Apply Any of the Below Risk Factors Present?: Yes Each Factor Represents 1 point: Acute LA, Age 41-60 years, Medical pt on bed rest, Obesity (BMI >25) Other Risk Factors: No Other congenital or acquired thrombophilia - If yes, enter type in comment: No Thrombosis Risk Factor Assessment Total Risk Factor Score: 4 Thrombosis Risk Factor Assessment Level: Moderate Risk Assessment and Plan Assessment: -Inferior STEMI, status post cardiac cath and angioplasty with stent placement in the RCA. Cardiology on the case. She is on aspirin and Brillinta -Nicotine dependence, nicotine patch -Hypertension on lisinopril and metoprolol -Strong family history of premature coronary artery disease -Hypothyroidism, on replacement therapy DVT prophylaxis: Subcutaneous heparin GI prophylaxis: Pepcid
[2019-08-29] MEDS: HEPARIN SODIUM,PORCINE 5,000 UNIT/ML 1 ML VIAL SQ SCH (20:53)
[2019-08-29] MEDS: ATORVASTATIN 80 MG TAB PO SCH (20:53)
[2019-08-29] MEDS: FAMOTIDINE 20 MG/2 ML VIAL IV SCH (20:53)
[2019-08-29] MEDS: HYDROCHLOROTHIAZIDE 12.5 MG CAP PO SCH (20:54)
[2019-08-29] MEDS: ZOLPIDEM 5 MG TAB PO PRN (23:16)
[2019-08-30 05:36] LABS: African American GFR (CKD) >90 (>60 ml/min/1.73 sqM); Anion Gap 3 mmol/L; Blood Urea Nitrogen 16 mg/dL (7-17); Carbon Dioxide 27 mmol/L (22-30); Chloride 107 mmol/L (98-107); Glucose 107 mg/dL (74-99); Non-African American GFR(CKD) >90 (>60 ml/min/1.73 sqM); Potassium 3.9 mmol/L (3.5-5.1); Sodium 137 mmol/L (137-145)
[2019-08-30] MEDS: LEVOTHYROXINE 137 MCG TAB PO SCH (06:42)
[2019-08-30] MEDS: HYDROCHLOROTHIAZIDE 12.5 MG CAP PO SCH (09:59)
[2019-08-30] MEDS: TICAGRELOR 90 MG TAB PO SCH ×2 (10:00→21:01)
[2019-08-30] MEDS: LOSARTAN 25 MG TAB PO SCH (10:00)
[2019-08-30] MEDS: METOPROLOL TARTRATE 25 MG TAB PO SCH ×2 (10:00→21:01)
[2019-08-30] MEDS: ASPIRIN 81 MG PO SCH (10:00)
[2019-08-30] MEDS: NICOTINE 21MG/24HR PATCH TRANSDERM SCH (10:01)
[2019-08-30] MEDS: HEPARIN SODIUM,PORCINE 5,000 UNIT/ML 1 ML VIAL SQ SCH ×2 (10:01→20:51)
[2019-08-30] MEDS: FAMOTIDINE 20 MG/2 ML VIAL IV SCH (10:01)
--- NOTE | 2019-08-30 10:11 | PN ---
PROGRESS NOTE Aysha is a 54-year-old lady that is admitted to hospital with acute inferior wall myocardial infarction underwent cardiac catheterization and angioplasty of [place] right coronary artery. This morning, she is doing well and is free of symptoms. She is currently on aspirin, Lipitor 80 daily, HydroDIURIL, Cozaar, Lopressor. EXAM: Comfortable at rest. Vital signs are stable. There is no jugular venous distention. Carotid upstroke is normal. There is no bruit. Chest exam reveals good air entry bilaterally. Heart exam reveals first and second heart sounds. No gallop. Exam of extremities did not reveal any edema. Peripheral pulses are felt. Labs show that the potassium is 3.9. Creatinine is 0.6. Hemoglobin was 12.9 yesterday. ASSESSMENT: Acute inferior wall myocardial infarction status post catheterization and angioplasty of right coronary artery. PLAN: Patient is doing well. Hopefully home tomorrow. MMODL / IJN: [id number] /
--- NOTE | 2019-08-30 13:41 | P.PN ---
Subjective This is a pleasant 54 years old female with past medical history of hypertension, hypothyroidism, cigarette smoker, strong family history of prematu re coronary artery disease, presents because of chest pressure found to have elevated troponin 0.08, 13 and 11. Patient has been evaluated by social service director and found to have inferior myocardial infarction and STEMI. Patient underwent emergent cardiac angiography with right coronary artery disease status post stenting of the RCA. Postprocedure was in the ICU, she is comfortable with no chest pain or dyspnea. Her vitals are stable. Labs with CBC and BMP are unremarkable 08/30/2019 Patient is comfortable sitting in chair. She is troponin the phone. She denies chest pain or dyspnea. No other new complaints. Vitals and labs are stable She is followed closely by social service director, echocardiogram showing ejection fraction of 60-65% Continue on aspirin and Brillinta Objective - Vital Signs Vital signs: Vital Signs Temp 98.5 F 08/30/19 08:00 Pulse 90 08/30/19 08:00 Resp 9 L 08/30/19 08:00 BP 111/63 08/30/19 08:00 Pulse Ox 95 08/30/19 04:00 Intake & Output 08/29/19 08/30/19 08/30/19 18:59 06:59 18:59 Intake Total 460 400 Balance 460 400 Weight 89.9 kg 88.7 kg Intake: IV 460 Sodium Chloride 0.9% 1, 460 000 ml @ 100 mls/hr IV . Q10H SALAS Rx#:[id number] Oral 400 Other: # Voids 2 2 0 - Exam GENERAL: The patient is alert and oriented x3, not in any acute distress. Well developed, well nourished. HEENT: Pupils are round and equally reacting to light. EOMI. No scleral icterus. No conjunctival pallor. Normocephalic, atraumatic. No pharyngeal erythema. No thyromegaly. CARDIOVASCULAR: S1 and S2 present. No murmurs, rubs, or gallops. PULMONARY: Chest is clear to auscultation, no wheezing or crackles. ABDOMEN: Soft, nontender, nondistended, normoactive bowel sounds. No palpable organomegaly. MUSCULOSKELETAL: No joint swelling or deformity. EXTREMITIES: No cyanosis, clubbing, or pedal edema. NEUROLOGICAL: Gross neurological examination did not reveal any focal deficits. SKIN: No rashes. no petechiae. - Labs CBC & Chem 7: 08/29/19 05:47 08/30/19 04:09 Labs: Abnormal Lab Results - Last 24 Hours (Table) 08/30/19 Range/Units 04:09 Glucose 107 H (74-99) mg/dL Assessment and Plan Assessment: -Inferior STEMI, status post cardiac cath and angioplasty with stent placement in the RCA. Cardiology on the case. She is on aspirin and Brillinta -Nicotine dependence, nicotine patch -Hypertension on lisinopril and metoprolol -Strong family history of premature coronary artery disease -Hypothyroidism, on replacement therapy DVT prophylaxis: Subcutaneous heparin GI prophylaxis: Pepcid
[2019-08-30] MEDS: FAMOTIDINE 20 MG TAB PO SCH (21:01)
[2019-08-30] MEDS: ATORVASTATIN 80 MG TAB PO SCH (21:01)
[2019-08-31] MEDS: LEVOTHYROXINE 137 MCG TAB PO SCH (06:11)
[2019-08-31] MEDS: ASPIRIN 81 MG PO SCH (08:24)
[2019-08-31] MEDS: NICOTINE 21MG/24HR PATCH TRANSDERM SCH (08:24)
[2019-08-31] MEDS: METOPROLOL TARTRATE 25 MG TAB PO SCH ×2 (08:24→20:54)
[2019-08-31] MEDS: TICAGRELOR 90 MG TAB PO SCH ×2 (08:25→20:54)
[2019-08-31] MEDS: HEPARIN SODIUM,PORCINE 5,000 UNIT/ML 1 ML VIAL SQ SCH ×2 (08:25→20:44)
[2019-08-31] MEDS: HYDROCHLOROTHIAZIDE 12.5 MG CAP PO SCH (08:25)
[2019-08-31] MEDS: LOSARTAN 25 MG TAB PO SCH (08:25)
[2019-08-31] MEDS: FAMOTIDINE 20 MG TAB PO SCH ×2 (08:25→20:54)
[2019-08-31] MEDS ORDERED: ATORVASTATIN 80 MG TAB PO STA (09:30)
[2019-08-31] MEDS ORDERED: ASPIRIN 325 MG TAB PO STA (09:30)
[2019-08-31] MEDS ORDERED: ALPRAZolam 0.25 MG TAB PO PRN (09:30)
[2019-08-31] MEDS ORDERED: NITROGLYCERIN SL TABS 0.4 MG TAB SUBLINGUAL PRN (09:30)
[2019-08-31] MEDS ORDERED: SODIUM CHLORIDE 0.9% 1,000 ML in EMPTY BAG 1 BAG IV ONE (09:30)
[2019-08-31] MEDS ORDERED: ALPRAZolam 0.5 MG TAB PO PRN (09:30)
--- NOTE | 2019-08-31 11:43 | PN ---
PROGRESS NOTE Aysha is a 54-year-old lady that is admitted to hospital with acute anterior inferior wall myocardial infarction, underwent cardiac catheterization, angioplasty of right coronary artery. This morning, she is doing fine, free of symptoms. She has a lesion in the LAD that will be addressed by Dr. Odell on Saturday. On exam, comfortable at rest. Vital signs are stable. There is no jugular venous distention. Chest exam reveals good air entry bilaterally. Heart exam reveals first and second heart sounds. No gallop. Abdomen is soft, nontender. Exam of extremities did not reveal any edema. Peripheral pulses are felt. ASSESSMENT: 1. Acute inferior wall myocardial infarction status post catheterization and angioplasty. 2. Significant lesion mid LAD. 3. Hypertension. 4. Hypothyroidism. PLAN: Patient will continue current medications. MMODL / IJN: [id number] /
--- NOTE | 2019-08-31 12:14 | PN ---
PROGRESS NOTE Aysha is a 54-year-old lady that is admitted to hospital with acute inferior wall myocardial infarction, underwent cardiac catheterization and angioplasty of right coronary artery. This morning, she is doing well and is free of chest pain or difficulty in breathing. She has a significant lesion in mid LAD and will need angioplasty with stent placement of the same. On exam, the patient is comfortable at rest. Vital signs are stable. Chest exam reveals good air entry bilaterally. Heart exam reveals first and second heart sounds. No gallop. Exam of extremities did not reveal any edema. Peripheral pulses are felt. Labs show a potassium of 3.9. Creatinine is 0.67. Current medications include aspirin, Lipitor, Cozaar, Lopressor and Brilinta. ASSESSMENT: Acute inferior wall myocardial infarction status post catheterization and angioplasty. PLAN: Patient will continue current medications. We will undergo angioplasty of LAD on Saturday by Dr. Odell. NELLY / OSMANY: [id number] /
[2019-08-31] MEDS: ATORVASTATIN 80 MG TAB PO SCH (20:54)
[2019-09-01] MEDS: LEVOTHYROXINE 137 MCG TAB PO SCH (06:45)
[2019-09-01] MEDS: LOSARTAN 25 MG TAB PO SCH (08:30)
[2019-09-01] MEDS: TICAGRELOR 90 MG TAB PO SCH ×2 (08:30→20:00)
[2019-09-01] MEDS: ASPIRIN 81 MG PO SCH (08:30)
[2019-09-01] MEDS: METOPROLOL TARTRATE 25 MG TAB PO SCH ×2 (08:30→20:00)
[2019-09-01] MEDS: NICOTINE 21MG/24HR PATCH TRANSDERM SCH (08:30)
[2019-09-01] MEDS: FAMOTIDINE 20 MG TAB PO SCH ×2 (08:30→20:00)
[2019-09-01] MEDS: HYDROCHLOROTHIAZIDE 12.5 MG CAP PO SCH (08:30)
[2019-09-01] MEDS: HEPARIN SODIUM,PORCINE 5,000 UNIT/ML 1 ML VIAL SQ SCH ×2 (08:32→19:59)
--- NOTE | 2019-09-01 10:50 | P.PN ---
Subjective Progress Note Date: 09/01/19 This is a pleasant 54 female who presented to the hospital with an acute inferior wall ST elevation myocardial infarction. She underwent angioplasty and stenting of the right coronary artery, has a significant lesion in the LAD which will be stented tomorrow. She was seen and examined this mor shauna, denies any chest pain or difficulty in breathing. Blood pressure 128/60 with a heart rate in the 80s 98% on room air. No lab data today. Objective - Vital Signs Vital signs: Vital Signs Temp 97.8 F 09/01/19 08:00 Pulse 81 09/01/19 08:00 Resp 18 09/01/19 08:00 BP 128/64 09/01/19 08:00 Pulse Ox 98 09/01/19 08:00 Intake & Output 08/31/19 09/01/19 09/01/19 18:59 06:59 18:59 Intake Total 400 480 240 Balance 400 480 240 Weight 91.5 kg Intake: Oral 400 480 240 Other: # Voids 2 1 - Exam PHYSICAL EXAMINATION: GENERAL: 54 year old female in no acute distress at the time of my examination HEENT: Head is atraumatic, normocephalic. Pupils equal, round. Sclera anicteric. Conjunctiva are clear. Mucous membranes of the mouth are moist. Neck is supple. There is no elevated jugular venous pressure. No carotid bruit is heard. HEART EXAMINATION: Heart S1, S2 normal. No murmur or gallop heard. CHEST EXAMINATION: Lungs are clear to auscultation and precussion. No chest wall tenderness is noted on palpation or with deep breathing. ABDOMEN: Soft, nontender. Bowel sounds are heard. No organomegaly noted. EXTREMITIES: 2+ peripheral pulses with no evidence of peripheral edema and no calf tenderness noted. NEUROLOGIC patient is awake, alert and oriented 3 . . - Labs CBC & Chem 7: 08/29/19 05:47 08/30/19 04:09 Assessment and Plan Plan: Assessment and plan #[address] elevation myocardial infarction, status post angioplasty and stenting of the RCA. Patient also has a significant lesion in the LAD #2 hyperlipidemia #3 nicotine dependence #4 hypertension Plan Echocardiogram with Doppler study was performed which revealed a normal left ventricular systolic function. From cardiology's perspective, we'll continue the patient on current medication. She will undergo angioplasty and stenting of the LAD tomorrow. DNP note has been reviewed, I agree with a documented findings and plan of care. Patient was seen and examined.
--- NOTE | 2019-09-01 19:06 | P.PN ---
Progress Note - Text Progress Note Date: 08/31/19 Presenting complaint: Chest pain History of presenting complaint: This is a 54-year-old patient of Dr. Quan. Chronic stable medical conditions include hypertension, goiter, arthritis, smoker. Presented with chest pain. Admitted with acute [place]. On August 27 underwent cardiac catheterization with successful stenting of RCA was totally occluded. Also has a LAD lesion. Initial decision was made to to the LAD lesion as an outpatient. Today-. Slight discomfort in the chest. Breathing stable. Plan is for intervention to LAD lesion on Saturday Review of systems: Was done for constitutional, cardiovascular, GI, pulmonary. relevant finding as above Current medications reviewed in today's electronic records On examination: VITAL SIGNS: [98.2, 80, 14, 140-86, 95% on room air] GENERAL APPEARANCE: BMI 34.6, sitting at the edge of the bed not in distress. HEENT: Normal external appearance of nose and ear. Oral cavity normal EYES: Pupils equal. Conjunctiva normal. NECK: JVD not raised. Mass not palpable. RESPIRATORY: Respiratory effort normal. Lungs clear to auscultation. CARDIOVASCULAR: First and second sounds normal. No edema. ABDOMEN: Soft. Liver and spleen not palpable. No tenderness. No mass palpable. PSYCHIATRY: Alert and oriented x3. Mood and affect normal. INVESTIGATIONS, reviewed in the clinical context: Potassium 3.9 creatinine 0.67 Previous testing: Troponin I 0.086, 13.2, 11.6 LDL 112 2-D echocardiogram-EF 60 have is 25% EKG tracing personally reviewed by me-abnormal T waves in inferior leads Assessment: -Acute non-Q-wave inferior wall myocardial infarctions -Coronary artery disease with total occlusion of RCA with successful arthroplasty stenting. Pending further intervention to LAD lesion -Hyperlipidemia -Essential hypertension -Hypothyroid -Chronic nicotine dependence patient cigarette smoker Plan: Patient is due for for coronary intervention on Saturday. Patient's currently on Brilinta, aspirin, Lipitor causes on beta raphael. Also nicotine patch. Care was discussed with the patient.
--- NOTE | 2019-09-01 19:08 | P.PN ---
Progress Note - Text Progress Note Date: 09/01/19 Presenting complaint: Chest pain History of presenting complaint: This is a 54-year-old patient of Dr. Quan. Chronic stable medical conditions include hypertension, goiter, arthritis, smoker. Presented with chest pain. Admitted with acute [place]. On August 27 underwent cardiac catheterization with successful stenting of RCA was totally occluded. Also has a LAD lesion. Initial decision was made to to the LAD lesion as an outpatient. Today-sitting up at the edge of the bed. She described was feeling something in the middle of the chest. Breathing is stable otherwise. Tolerating diet. Review of systems: Was done for constitutional, cardiovascular, GI, pulmonary. relevant finding as above Active Medications Al Hydroxide/Mg Hydroxide (Maalox) 30 ml PO Q4HR PRN PRN Reason: Heartburn Last Admin: 08/28/19 16:00 Dose: 30 ml Documented by: Alprazolam (Xanax) 0.25 mg PO Q6HR PRN PRN Reason: Mild Anxiety Alprazolam (Xanax) 0.5 mg PO Q6HR PRN PRN Reason: Moderate Anxiety Aspirin (Aspirin) 81 mg PO DAILY [facility] Last Admin: 09/01/19 08:30 Dose: 81 mg Documented by: Atorvastatin Calcium (Lipitor) 80 mg PO HS [facility] Last Admin: 08/31/19 20:54 Dose: 80 mg Documented by: Atropine Sulfate (Atropine) 0.5 mg IV ONCE PRN PRN Reason: Symptomatic Bradycardia Famotidine (Pepcid) 20 mg PO Q12HR [facility] Last Admin: 09/01/19 08:30 Dose: 20 mg Documented by: Heparin Sodium (Porcine) (Heparin) 5,000 unit SQ Q12HR [facility] Last Admin: 09/01/19 08:32 Dose: Not Given Documented by: Hydrochlorothiazide (Hydrodiuril) 12.5 mg PO DAILY [facility] Last Admin: 09/01/19 08:30 Dose: 12.5 mg Documented by: Levothyroxine Sodium (Synthroid) 137 mcg PO 629 [facility] Last Admin: 09/01/19 06:45 Dose: 137 mcg Documented by: Losartan Potassium (Cozaar) 25 mg PO DAILY [facility] Last Admin: 09/01/19 08:30 Dose: 25 mg Documented by: Metoprolol Tartrate (Lopressor) 25 mg PO BID [facility] Last Admin: 09/01/19 08:30 Dose: 25 mg Documented by: Nicotine (Habitrol 21mg/24hr Patch) 1 patch TRANSDERM DAILY [facility] Last Admin: 09/01/19 08:30 Dose: 1 patch Documented by: Nitroglycerin (Nitrostat) 0.4 mg SUBLINGUAL Q5M PRN PRN Reason: Chest Pain Nitroglycerin (Nitrostat) 0.4 mg SUBLINGUAL Q5M PRN PRN Reason: Chest Pain Ticagrelor (Brilinta) 90 mg PO BID [facility] Last Admin: 09/01/19 08:30 Dose: 90 mg Documented by: Zolpidem Tartrate (Ambien) 5 mg PO HS PRN PRN Reason: Insomnia Last Admin: 08/29/19 23:16 Dose: 5 mg Documented by: On examination: VITAL: [97.8, 81, 18, 128/64, 98% room air GENERAL APPEARANCE: Sitting at the edge of the bed, comfortable. HEENT: Normal external appearance of nose and ear. Oral cavity normal EYES: Pupils equal. Conjunctiva normal. NECK: JVD not raised. Mass not palpable. RESPIRATORY: Respiratory effort normal. Lungs clear to auscultation. CARDIOVASCULAR: First and second sounds normal. No edema. ABDOMEN: Soft. Liver and spleen not palpable. No tenderness. No mass palpable. PSYCHIATRY: Alert and oriented x3. Mood and affect normal. INVESTIGATIONS, reviewed in the clinical context: Potassium 3.9 creatinine 0.67 Previous testing: Troponin I 0.086, 13.2, 11.6 LDL 112 2-D echocardiogram-EF 60 have is 25% EKG tracing personally reviewed by me-abnormal T waves in inferior leads Assessment: -Acute non-Q-wave inferior wall myocardial infarctions -Coronary artery disease with total occlusion of RCA with successful arthroplasty stenting. Pending further intervention to LAD lesion -Hyperlipidemia -Essential hypertension -Hypothyroid -Chronic nicotine dependence patient cigarette smoker -Obesity BMI 34.6 Plan: due for for coronary intervention on Saturday. Continue Brilinta, aspirin, Lipitor causes on beta raphael. Care was discussed with the patient. Repeat electrolytes in the morning.
[2019-09-01] MEDS ORDERED: FAMOTIDINE 20 MG/2 ML VIAL IV PRN (19:24)
[2019-09-01] MEDS ORDERED: HYDROmorphone 0.5 MG/0.5 ML SYRINGE IVP PRN (19:24)
[2019-09-01] MEDS ORDERED: LACTATED RINGERS 1,000 ML IV SCH ×2 (19:30→22:15)
[2019-09-01] MEDS: ATORVASTATIN 80 MG TAB PO SCH (20:00)
[2019-09-02] MEDS: METOPROLOL TARTRATE 25 MG TAB PO SCH (05:24)
[2019-09-02] MEDS: LEVOTHYROXINE 137 MCG TAB PO SCH (05:24)
[2019-09-02] MEDS: TICAGRELOR 90 MG TAB PO SCH (05:24)
[2019-09-02] MEDS: LOSARTAN 25 MG TAB PO SCH (05:24)
[2019-09-02] MEDS: FAMOTIDINE 20 MG TAB PO SCH (05:24)
[2019-09-02] MEDS: ATORVASTATIN 80 MG TAB PO SCH (05:24)
[2019-09-02] MEDS: ASPIRIN 81 MG PO SCH (05:24)
[2019-09-02 06:50] LABS: African American GFR (CKD) >90 (>60 ml/min/1.73 sqM); Anion Gap 5 mmol/L; Blood Urea Nitrogen 22 mg/dL (7-17); Carbon Dioxide 27 mmol/L (22-30); Chloride 107 mmol/L (98-107); Glucose 133 mg/dL (74-99); Non-African American GFR(CKD) 90 (>60 ml/min/1.73 sqM); Potassium 4.3 mmol/L (3.5-5.1); Sodium 139 mmol/L (137-145)
[2019-09-02 08:25] VITALS: TEMP 97.9
[2019-09-02] MEDS ORDERED: VERAPAMIL 2.5 MG/ML 2 ML AMP ONE (09:47)
[2019-09-02] MEDS ORDERED: LIDOCAINE 1% INJ 10MG/ML (20 ML MDV) ONE (09:47)
[2019-09-02] MEDS ORDERED: HEPARIN SODIUM 1,000 UN/ML (10ML VL) ONE (09:48)
[2019-09-02] MEDS ORDERED: MIDAZOLAM 2 MG/2 ML VIAL IV ONE (10:00)
[2019-09-02] MEDS ORDERED: LIDOCAINE 1% INJ 10MG/ML (20 ML MDV) SQ ONE (10:05)
[2019-09-02] MEDS ORDERED: VERAPAMIL SYRINGE (5 MG/10 ML) INTRAARTER ONE (10:06)
[2019-09-02] MEDS ORDERED: fentaNYL (PF) 50 MCG/ML 2 ML AMP ONE (10:07)
[2019-09-02] MEDS ORDERED: IV FLUID CONTINUATION 1,000 ML IV ONE (10:10)
[2019-09-02] MEDS ORDERED: IOPAMIDOL-370 100ML BTL INJ ONE (10:18)
[2019-09-02] MEDS ORDERED: RX INFO: IV CONTRAST WAS GIVEN 1 EACH MISC MISCELLANE PRN (10:28)
[2019-09-02] MEDS ORDERED: SODIUM CHLORIDE 0.9% 1,000 ML IV SCH (10:30)
[2019-09-02] MEDS: HEPARIN SODIUM,PORCINE 5,000 UNIT/ML 1 ML VIAL SQ SCH (11:51)
[2019-09-02] MEDS: HYDROCHLOROTHIAZIDE 12.5 MG CAP PO SCH (12:16)
[2019-09-02] MEDS: NICOTINE 21MG/24HR PATCH TRANSDERM SCH (12:16)
--- NOTE | 2019-09-02 15:04 | CC ---
CARDIAC CATHETERIZATION REPORT DATE OF SERVICE: August 28, 2019 PERFORMING PHYSICIAN: Prasanth Odell MD. PROCEDURE PERFORMED: Selective left coronary angiogram. INDICATION: This is a 54-year-old female patient with significant history of smoking who presented to the hospital 3 days ago with acute inferior ST-elevation myocardial infarction. She underwent an emergent heart catheterization by Dr. Mena and that revealed acute total occlusion of the RCA which was opened and stented by Dr. Teresa at that point and also severe disease involving the mid LAD. She was brought today to undergo an intervention on the LAD. APPROACH: Right radial artery. COMPLICATION: None. LEVEL OF SEDATION: Moderate with sedation length of 15 minutes. PROCEDURE DESCRIPTION: After obtaining informed consent, the patient was brought to the cardiac wharf labourer. The right radial artery was cannulated using micropuncture technique, the micropuncture wire passed easily. Then I placed a 5-[place]oc[place] sheath at the right radial artery. Subsequently, 2 mg of verapamil IA and 10,000 units of heparin IV given. I did perform selective left coronary angiogram using a JL3.5 with short tip. Initially I tried JL 3.5 and JL3 and every time the catheter was diving into the left circumflex with the pressure waveform dampening. The procedure was completed without any complication. SELECTIVE CORONARY ANGIOGRAM: 1. The left main is angiographically normal. It bifurcates into LCX and LAD. 2. The LCX is a large caliber vessel, it is a nondominant vessel. The LCX is angiographically normal. The LCX gives rise into an OM branch which seems to be angiographically normal. 3. The LAD: The proximal LAD appeared to be angiographically normal. The mid LAD has mild disease only by the bifurcation of the septal centrifugal casting machine operator branch. The LAD distally appeared to be angiographically normal. The LAD in the proximal portion gives rise into a diagonal branch which seems to be normal. CONCLUSION: Mild disease involving the mid left anterior descending artery. POSTPROCEDURE MANAGEMENT: 1. Medical treatment. 2. Follow up with the patient. MMODL / IJN: [id number] /
[2019-09-02 16:26] VITALS: BP 102/71; PULSE 70; RESP 18
--- NOTE | 2019-09-02 23:23 | P.DS ---
Providers Date of admission: 08/28/19 10:28 Expected date of discharge: 09/02/19 Attending physician: Jose Elias Cabrera Consults: 08/28/19 11:35 Consult Physician Routine Consulting Provider: [facility] Consult Reason/Comments: Post Interventional patient Do you want consulting provider notified?: Already Contacted 08/29/19 09:43 Consult Physician Routine Consulting Provider: Jose Elias Cabrera Consult Reason/Comments: Hospitalist Do you want consulting provider notified?: Yes Primary care physician: Stated None Hospital Course: Presenting complaint: Chest pain History of presenting complaint: This is a 54-year-old patient of Dr. Quan. Chronic stable medical conditions include hypertension, goiter, arthritis, smoker. Presented with chest pain. Admitted with acute [facility]. On August 27 underwent cardiac catheterization with successful stenting of RCA was totally occluded. Also has a LAD lesion. Initial decision was made to to the LAD lesion as an outpatient. Today-patient underwent cardiac catheterization. The lesion that was initially felt to be in LAD was not not found to be significant anymore. Care was discussed with ender Rodrigez to discharge the patient today. Consultation: Dr. Ty Mena from cardiology Dr. Horta from interventional cardiology On examination: VITAL: [Afebrile, 70, 18, 102/71, 95% room air GENERAL APPEARANCE: Laying in bed, comfortable HEENT: Normal external appearance of nose and ear. Oral cavity normal EYES: Pupils equal. Conjunctiva normal. NECK: JVD not raised. Mass not palpable. RESPIRATORY: Respiratory effort normal. Lungs clear to auscultation. CARDIOVASCULAR: First and second sounds normal. No edema. ABDOMEN: Soft. Liver and spleen not palpable. No tenderness. No mass palpable. PSYCHIATRY: Alert and oriented x3. Mood and affect normal. INVESTIGATIONS, reviewed in the clinical context: Potassium 4.3 creatinine 0.75 Previous testing: Troponin I 0.086, 13.2, 11.6 LDL 112 2-D echocardiogram-EF 60 have is 25% EKG tracing personally reviewed by me-abnormal T waves in inferior leads Assessment: -Acute non-Q-wave inferior wall myocardial infarctions -Coronary artery disease with total occlusion of RCA with successful arthroplasty stenting. (Repeat cardiac catheterization did not show any significant lesion LAD.) -Hyperlipidemia -Essential hypertension -Hypothyroid -Chronic nicotine dependence patient cigarette smoker -Obesity BMI 34.6 Disposition: Home Patient Condition at Discharge: Stable Plan - Discharge Summary Discharge Rx Participant: No New Discharge Prescriptions: New Aspirin 81 mg PO DAILY #30 chew Ticagrelor [Brilinta] 90 mg PO BID #60 tab Losartan [Cozaar] 25 mg PO DAILY #30 tab Nicotine 21Mg/24Hr Patch [Habitrol] 1 patch TRANSDERM DAILY #14 patch Atorvastatin [Lipitor] 80 mg PO HS #30 tab Metoprolol Tartrate [Lopressor] 25 mg PO BID #60 tab Nitroglycerin Sl Tabs [Nitrostat] 0.4 mg SUBLINGUAL Q5M PRN #25 tab PRN Reason: Chest Pain Famotidine [Pepcid] 20 mg PO Q12HR #60 tab Continue Levothyroxine Sodium [Synthroid] 137 mcg PO DAILY Hydroxychloroquine Sulfate [Plaquenil] 200 mg PO BID Ergocalciferol [Vitamin D2 (DRISDOL)] 50,000 unit PO Q7D Discontinued Verapamil Sr [Isoptin Sr] 180 mg PO DAILY Losartan Potassium [Cozaar] 50 mg PO DAILY Hydrochlorothiazide [Hydrodiuril] 12.5 mg PO DAILY Discharge Medication List Levothyroxine Sodium [Synthroid] 137 mcg PO DAILY 11/08/15 [History] Hydroxychloroquine Sulfate [Plaquenil] 200 mg PO BID 01/09/19 [History] Ergocalciferol [Vitamin D2 (DRISDOL)] 50,000 unit PO Q7D 08/28/19 [History] Aspirin 81 mg PO DAILY #30 chew 09/02/19 [Rx] Atorvastatin [Lipitor] 80 mg PO HS #30 tab 09/02/19 [Rx] Famotidine [Pepcid] 20 mg PO Q12HR #60 tab 09/02/19 [Rx] Losartan [Cozaar] 25 mg PO DAILY #30 tab 09/02/19 [Rx] Metoprolol Tartrate [Lopressor] 25 mg PO BID #60 tab 09/02/19 [Rx] Nicotine 21Mg/24Hr Patch [Habitrol] 1 patch TRANSDERM DAILY #14 patch 09/02/19 [Rx] Nitroglycerin Sl Tabs [Nitrostat] 0.4 mg SUBLINGUAL Q5M PRN #25 tab 09/02/19 [Rx] Ticagrelor [Brilinta] 90 mg PO BID #60 tab 09/02/19 [Rx] Follow up Appointment(s)/Referral(s): cardiology, [Other] - 1 Week Sutart Quan DO [STAFF PHYSICIAN] - 09/15/19 1:00 pm (appointment previously made) Patient Instructions/Handouts: Heart Attack (DC), Right Heart Catheterization (DC), Heart Healthy Diet (DC) Activity/Diet/Wound Care/Special Instructions: cardiac diet activity is limited till you see your doctor Discharge Disposition: HOME SELF-CARE
== END 2019-09-02 18:24 | disposition home or self-care (01) | DRG 247 ==
LOC: 2SICU 10:28 → 3SCARD 08-31 23:31
PROVIDERS: ADMIT Hospitalist; ATTEND Hospitalist
PROC: 027034Z Dilation of Coronary Artery, One Artery with Drug-eluting Intraluminal Device, Percutaneous Approach (ICD-10-PCS; principal; 2019-08-28 10:30)
PROC: 4A023N7 Measurement of Cardiac Sampling and Pressure, Left Heart, Percutaneous Approach (ICD-10-PCS; 2019-08-28 10:30)
PROC: B2111ZZ Fluoroscopy of Multiple Coronary Arteries using Low Osmolar Contrast (ICD-10-PCS; 2019-08-28 10:30)
PROC: B2111ZZ Fluoroscopy of Multiple Coronary Arteries using Low Osmolar Contrast (ICD-10-PCS; 2019-09-02)
DX: I21.19 ST elevation (STEMI) myocardial infarction involving other coronary artery of inferior wall (principal); E66.9 Obesity, unspecified; E78.5 Hyperlipidemia, unspecified; E89.0 Postprocedural hypothyroidism; F17.210 Nicotine dependence, cigarettes, uncomplicated; I10 Essential (primary) hypertension; I25.10 Atherosclerotic heart disease of native coronary artery without angina pectoris; M19.90 Unspecified osteoarthritis, unspecified site; Z68.34 Body mass index [BMI] 34.0-34.9, adult; Z79.890 Hormone replacement therapy; Z79.899 Other long term (current) drug therapy; Z90.710 Acquired absence of both cervix and uterus; Z90.49 Acquired absence of other specified parts of digestive tract; Z98.1 Arthrodesis status; Z88.8 Allergy status to other drugs, medicaments and biological substances; Z91.048 Other nonmedicinal substance allergy status; Z98.42 Cataract extraction status, left eye; Z82.49 Family history of ischemic heart disease and other diseases of the circulatory system
CPT/HCPCS: 80048; 80053; 80061; 84484; 85025; 85027; 93306; 93454; 93458

== ENCOUNTER → 2019-10-09 | Outpatient (CLI) | payer BC ==
[2019-10-09 10:35] VITALS: BMI 32.2
== END | disposition home or self-care (01) ==
LOC: DBWHC3 09:00
PROVIDERS: ATTEND Family Medicine
DX: E78.5 Hyperlipidemia, unspecified (principal)
CPT/HCPCS: 97802

== ENCOUNTER → 2019-10-16 | Outpatient (CLI) | payer BC ==
[2019-10-16 13:24] LABS: HCT 40.5 % (34.0-46.0); HGB 12.8 gm/dL (11.4-16.0); MCH 28.8 pg (25.0-35.0); MCHC 31.6 g/dL (31.0-37.0); MCV 91.3 fL (80.0-100.0); Mean Platelet Volume 7.1; Platelet Count 370 k/uL (150-450); RBC 4.44 m/uL (3.80-5.40); RDW 13.7 % (11.5-15.5); WBC 8.1 k/uL (3.8-10.6)
[2019-10-16 20:09] LABS: African American GFR (CKD) 112.3 (60.0-200.0); Anion Gap 6.6 mmol/L (4.00-12.00); Calcium 9.7 mg/dL (8.7-10.3); Carbon Dioxide 29.4 mmol/L (21.6-31.8); Chol/HDL Ratio 3.47; LDL Cholesterol,Calculated 58.6 mg/dL (0.0-131.0); Non-African American GFR(CKD) 96.9 (60.0-200.0); Potassium 4.1 mmol/L (3.5-5.5); VLDL Calculation 20.4 mg/dL (5.00-40.00)
[2019-10-16 20:16] LABS: T4, Free (Free Thyroxine) 1.4 ng/dL (0.80-1.80)
[2019-10-16 20:34] LABS: Hemoglobin A1C 6.5 % (4.0-6.0)
== END | disposition home or self-care (01) ==
LOC: LABWHC1 11:53
PROVIDERS: ATTEND Family Medicine
DX: I10 Essential (primary) hypertension (principal); E78.5 Hyperlipidemia, unspecified; E03.9 Hypothyroidism, unspecified; E55.9 Vitamin D deficiency, unspecified; E78.2 Mixed hyperlipidemia
CPT/HCPCS: 36415; 80048; 80061; 82306; 83036; 84439; 84443; 84450; 84460; 85027

== ENCOUNTER → 2021-05-12 | Outpatient (CLI) | payer BC ==
[2021-05-12 23:38] LABS: AST 15 U/L (13-35); African American GFR (CKD) 113.4 (60.0-200.0); Blood Urea Nitrogen 16.9 mg/dL (9.0-27.0); Non-African American GFR(CKD) 97.8 (60.0-200.0); Uric Acid 3.9 mg/dL (2.9-7.7)
[2021-05-13 00:34] LABS: ALT 21 U/L (8-44); C Reactive Protein <0.30 mg/dL (0.00-0.80); Rheumatoid Factor, Qnt 11 IU/mL (0-15)
[2021-05-13 01:38] LABS: Basophils # (A) 0.03 X 10*3/uL (0.00-0.10); Basophils % (A) 0.4 %; Eosinophils # (A) 0.27 X 10*3/uL (0.04-0.35); Eosinophils % (A) 3.3 %; HCT 42.8 % (37.2-46.3); HGB 13.3 g/dL (12.0-15.0); Immature Grans, Automated 0.2 %; Lymphocytes % (A) 31.7 %; MCH 30.2 pg (27.0-32.0); MCHC 31.1 g/dL (32.0-37.0); MCV 97.3 fL (80.0-97.0); Monocytes # (A) 0.45 X 10*3/uL (0.20-1.00); Monocytes % (A) 5.5 %; NRBC Per 100 WBC 0 /100 WBCS (0.0-0.0); Neutrophils # (A) 4.83 X 10*3/uL (1.80-7.70); Neutrophils % (A) 58.9 %; Platelet Count 419 X 10*3/uL (140-440); RDW 13.7 % (11.5-14.5)
[2021-05-13 08:56] LABS: Cyclic Citrull Pep IgG Unit <0.5 U/mL; Cyclic Citrullinated Pep IgG NEGATIVE (NEGATIVE)
== END | disposition home or self-care (01) ==
LOC: LABWHC1 15:22
PROVIDERS: ATTEND Internal Medicine Rheumatology
DX: M25.50 Pain in unspecified joint (principal); M06.4 Inflammatory polyarthropathy; Z79.01 Long term (current) use of anticoagulants
CPT/HCPCS: 36415; 82565; 82728; 84443; 84450; 84460; 84520; 84550; 85025; 86140; 86200; 86431; 86480

== ENCOUNTER → 2021-07-25 | Outpatient (CLI) | payer BC ==
--- NOTE | 2021-07-25 14:36 | US ---
EXAMINATION TYPE: US mass soft tissue chest/back DATE OF EXAM: 07/25/2021 COMPARISON: NONE CLINICAL HISTORY: 56-year-old female D17.1 BENIGN LIPOMATOUS NEOPLASM OF SKIN, SUBCUTANEOUS TISSUE. P t states palpable lump right shoulder blade, approximately the size of a baseball Technique: Targeted ultrasound examination posterior right shoulder at the patient's palpable site. FINDINGS: Packing Room Inspector notes: Solid appearing mass at area of pt's palpable right shoulder blade= 7.2 x 3.5 x 6.9 cm ?lipoma vs. other etiology IMPRESSION: Palpable site along the posterior right shoulder corresponds to a vague 7.2 cm area, possible mass/li gina. Recommend CT of the chest for further initial assessment. The scan should be performed with arm s down in anatomic position and the entire chest wall should be included in the [id number]. Consid er prone scanning.
== END | disposition home or self-care (01) ==
LOC: RADUSWWP 10:13
PROVIDERS: ATTEND Family Medicine
DX: D17.1 Benign lipomatous neoplasm of skin and subcutaneous tissue of trunk (principal)

== ENCOUNTER → 2021-08-09 | Outpatient (CLI) | payer BC ==
--- NOTE | 2021-08-09 10:01 | CT ---
EXAMINATION TYPE: CT chest w con DATE OF EXAM: 08/09/2021 COMPARISON: Ultrasound dated 07/25/2021 HISTORY: lipoma of chest wall CT DLP: 353.3 mGycm Automated exposure control for dose reduction was used. TECHNIQUE: CT scan of the chest is performed with IV Contrast, patient injected with 70 mL of Isovue 300. FINDINGS: LUNGS: Mild to moderate centrilobular emphysema mainly involving the upper lobes. Bilateral basal andres ear pulmonary atelectasis. Patent trachea and bronchi. No pleural effusion MEDIASTINUM: There are no greater than 1 cm hilar or mediastinal lymph nodes. No gross cardiomegaly. Coronary and arterial atherosclerotic calcifications. The pulmonary trunk measures 2.9 cm. No perica rdial effusion is seen. OTHER: A marker was placed over the area of interest along the inferior aspect of the right shoulder . There is a soft tissue triangular lesion seen at that location, infrascapular/subscapular, and toby uring 3.2 x 7.9 cm likely representing an elastofibroma dorsi. Similar area smaller lesion is seen on the left side measuring 12 x 58 mm. Previous cholecystectomy. Mild degenerative changes of the thora cic spine. 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 Recommend clinical correlation and surgical consultation. Other incidental findings as described cindy phipps
== END | disposition home or self-care (01) ==
LOC: RADCTMAIN 08:04
PROVIDERS: ATTEND Family Medicine
DX: D17.1 Benign lipomatous neoplasm of skin and subcutaneous tissue of trunk (principal)
CPT/HCPCS: 71260; Q9967

== ENCOUNTER → 2022-07-25 | Outpatient (CLI) | payer BC ==
--- NOTE | 2022-07-26 20:30 | MM ---
Reason for Exam: Screening (asymptomatic). Last mammogram was performed 4 year(s) and 4 month(s) ago. Patient History: Menarche at age 10. First Full-Term at age 19. Left ovary removed at age 23. Right ovary removed at age 23. Hysterectomy at age 23. Postmenopausal. Other cancer, age 46. Maternal cousin had breast cancer, age 40. Maternal aunt had breast cancer, age 34. Maternal aunt had breast cancer. Mother had breast cancer, age 55. Risk Values: Fabiola 5 year model risk: 2.7%. NCI Lifetime model risk: 13.9%. Prior Study Comparison: 07/28/2015 Bilateral Screening Mammogram, [facility]. 01/31/2017 Bilateral Screening Mammogram, [facility]. 03/14/2018 Bilateral Screening Mammogram, [facility]. Tissue Density: The breast tissue is heterogeneously dense. This may lower the sensitivity of mammography. Findings: Analyzed By CAD. There is no suspicious group of microcalcifications or new suspicious mass in either breast. Overall Assessment: Benign, BI-RAD 2 Management: Screening Mammogram of both breasts in 1 year. . Patient should continue monthly self-breast exams. A clinical breast exam by your physician is recommended on an annual basis. This exam should not preclude additional follow-up of suspicious palpable abnormalities. Note on Fabiola scores and lifetime risk: 1. A Fabiola score greater than 3% is considered moderate risk. If this is the case, consider specialist referral to assess eligibility for a risk reducing agent. 2. If overall lifetime risk for the development of breast cancer is 20% or higher, the patient may qualify for future screening with alternating mammogram and breast MRI. Electronically signed and approved by: Noel العراقي M.D. Radiologist
== END | disposition home or self-care (01) ==
LOC: RADMAMWWP 13:10
PROVIDERS: ATTEND Family Medicine
DX: Z12.31 Encounter for screening mammogram for malignant neoplasm of breast (principal); Z78.0 Asymptomatic menopausal state; Z80.3 Family history of malignant neoplasm of breast
CPT/HCPCS: 77063; 77067

== ENCOUNTER → 2022-08-16 | Outpatient (CLI) | payer BC ==
--- NOTE | 2022-08-16 09:55 | USB ---
Reason for Exam: Clinical finding. Patient History: Menarche at age 10. First Full-Term at age 19. Left ovary removed at age 23. Right ovary removed at age 23. Hysterectomy at age 23. Postmenopausal. Other cancer, age 46. Maternal cousin had breast cancer, age 40. Maternal aunt had breast cancer, age 34. Maternal aunt had breast cancer. Mother had breast cancer, age 55. Risk Values: Fabiola 5 year model risk: 2.7%. NCI Lifetime model risk: 13.9%. Prior Study Comparison: 03/19/2013 Left Diagnostic Ultrasound, [facility]. 01/31/2017 Bilateral Screening Mammogram, [facility]. 03/14/2018 Bilateral Screening Mammogram, [facility]. 07/25/2022 Bilateral MG 3D screening mammo w/cad, [facility]. Findings: The whole breast of the left breast, the axilla of the left breast and the retroareolar of the left breast were scanned. No solid or cystic masses are identified.. Managed clinically. Overall Assessment: Negative, BI-RAD 1 Management: Screening Mammogram of both breasts in 11 months. A clinical breast exam by your physician is recommended on an annual basis and results should be correlated with mammographic findings. This exam should not preclude additional follow-up of suspicious palpable abnormalities. Results were given to the patient verbally at the time of exam. Electronically signed and approved by: Ariel Dawson M.D. Radiologis
== END | disposition home or self-care (01) ==
LOC: RADUSWWP 09:21
PROVIDERS: ATTEND Family Medicine
DX: N64.4 Mastodynia (principal); Z78.0 Asymptomatic menopausal state; Z80.3 Family history of malignant neoplasm of breast; Z90.721 Acquired absence of ovaries, unilateral

== ENCOUNTER → 2022-12-20 | Outpatient (CLI) | payer BC ==
[2022-12-20 22:30] LABS: Basophils # (A) 0.05 X 10*3/uL (0.00-0.10); Basophils % (A) 0.6 %; Eosinophils # (A) 0.15 X 10*3/uL (0.04-0.35); Eosinophils % (A) 1.7 %; HCT 44.6 % (37.2-46.3); HGB 14.2 d/dL (12.0-15.0); Lymphocytes % (A) 31.1 %; MCH 30.4 pg (27.0-32.0); MCHC 31.8 d/dL (32.0-37.0); MCV 95.5 FL (80.0-97.0); Mean Platelet Volume 9.7 FL (9.5-12.2); Monocytes # (A) 0.51 X 10*3/uL (0.20-1.00); Monocytes % (A) 5.9 %; NRBC Per 100 WBC 0 X 10*3/uL (0.00-0.01); Neutrophils # (A) 5.22 X 10*3/uL (1.80-7.70); Neutrophils % (A) 60.2 %; Platelet Count 550 X 10*3/uL (140-440); RBC 4.67 X 10*6/uL (4.10-5.20); RDW 14.6 % (11.5-14.5); WBC 8.67 X 10*3/uL (4.50-10.00)
[2022-12-20 23:27] LABS: ALT 25 U/L (8-44); AST 18 U/L (13-35); Blood Urea Nitrogen 21.4 mg/dL (9.0-27.0); C Reactive Protein <0.30 mg/dL (0.00-0.80)
[2022-12-20 23:38] LABS: Erythrocyte Sedimentation Rate 10 mm/Hr (0-30)
== END | disposition home or self-care (01) ==
LOC: LABWHC1 14:34
PROVIDERS: ATTEND Internal Medicine Rheumatology
DX: M25.50 Pain in unspecified joint (principal)
CPT/HCPCS: 36415; 82565; 84443; 84450; 84460; 84520; 85025; 85652; 86140; 86480

== ENCOUNTER → 2024-04-22 | Outpatient (CLI) | payer BC ==
--- NOTE | 2024-04-22 10:44 | MM ---
Reason for Exam: Clinical finding. Last mammogram was performed 1 year(s) and 9 month(s) ago. Patient History: Menarche at age 10. First Full-Term at age 19. Left ovary removed at age 23. Right ovary removed at age 23. Hysterectomy at age 23. Postmenopausal. Other cancer, age 46. Maternal cousin had breast cancer, age 40. Maternal aunt had breast cancer, age 34. Maternal aunt had breast cancer. Mother had breast cancer, age 55. Risk Values: Fabiola 5 year model risk: 2.7%. NCI Lifetime model risk: 13.6%. Tissue Density: The breasts are heterogeneously dense, which may obscure small masses. Findings: Analyzed By CAD. No significant change from prior exams. Overall Assessment: Incomplete: need additional imaging evaluation, BI-RAD 0 Management: Diagnostic Breast Ultrasound of the left breast. For occasional bloody/clear nipple discharge which sometimes appears greenish as well. [facility], Workstation: [id number], 04/22/2024 10:42 AM. Electronically signed and approved by: Noel العراقي M.D. Radiologist
--- NOTE | 2024-04-22 11:38 | USB ---
Reason for Exam: Clinical finding. Patient History: Menarche at age 10. First Full-Term at age 19. Left ovary removed at age 23. Right ovary removed at age 23. Hysterectomy at age 23. Postmenopausal. Other cancer, age 46. Maternal cousin had breast cancer, age 40. Maternal aunt had breast cancer, age 34. Maternal aunt had breast cancer. Mother had breast cancer, age 55. Risk Values: Fabiola 5 year model risk: 2.7%. NCI Lifetime model risk: 13.6%. Technique: Method: Whole Breast Handheld. Prior Study Comparison: 01/31/2017 Bilateral Screening Mammogram, [facility]. 03/14/2018 Bilateral Screening Mammogram, [facility]. 07/25/2022 Bilateral MG 3D screening mammo w/cad, [facility]. Findings: The whole breast of the left breast, the axilla of the left breast and the retroareolar of the left breast were scanned. A complete US of all four quadrants of the breast, axilla, and retro-areolar region were reviewed. At the 9:00 position, 2 cm from the nipple, there is a 6 x 4 x 3 mm cyst with some mural based echoes, suspected debris that can be reassessed in 6 months. Some mild subareolar duct ectasia is noted. Otherwise, no solid or cystic lesion or axillary adenopathy. Overall Assessment: Probably benign, BI-RAD 3 Management: Diagnostic Breast Ultrasound of the left breast in 6 months. In addition, recommend surgical consultation to further assess the patient's left sided nipple discharge. Suspicious discharge that would warrant further evaluation such as with MRI, ductogram, or duct exploration includes spontaneous clear/bloody discharge localized to a single pore on the nipple. Results were given to the patient verbally at the time of exam. [facility], , 04/22/2024 11:35 AM. Electronically signed and approved by: Noel العراقي M.D. Radiologist
== END | disposition home or self-care (01) ==
LOC: RADMAMWWP 10:19
PROVIDERS: ATTEND Family Medicine
DX: N64.4 Mastodynia (principal); R92.333 Mammographic heterogeneous density, bilateral breasts; Z78.0 Asymptomatic menopausal state; Z80.3 Family history of malignant neoplasm of breast
CPT/HCPCS: 77062; 77066

== ENCOUNTER → 2024-09-25 | Outpatient (CLI) | payer BC ==
[2024-09-25 15:29] LABS: HCT 44.3 % (37.2-46.3); HGB 14.3 g/dL (12.0-15.0); MCH 30.6 pg (27.0-32.0); MCHC 32.3 g/dL (32.0-37.0); MCV 94.9 FL (80.0-97.0); NRBC Per 100 WBC 0 X 10*3/uL (0.00-0.01); Platelet Count 493 X 10*3/uL (140-440); RBC 4.67 X 10*6/uL (4.10-5.20); RDW 14.6 % (11.5-14.5); WBC 8.49 X 10*3/uL (4.50-10.00)
[2024-09-25 16:09] LABS: ALT 17 U/L (8-44); AST 16 U/L (13-35); Albumin 4.1 g/dL (3.8-4.9); Albumin/Globulin Ratio 2.28 Ratio (1.60-3.17); Alkaline Phosphatase 71 U/L (41-126); Anion Gap 11.80 mmol/L (4.00-12.00); BUN/Creat Ratio 23.43 Ratio (12.00-20.00); Blood Urea Nitrogen 16.4 mg/dL (9.0-27.0); Calcium 8.8 mg/dL (8.7-10.3); Carbon Dioxide 24.2 mmol/L (21.6-31.8); Chloride 105 mmol/L (96-109); Globulin 1.8 g/dL (1.6-3.3); Glucose 120 mg/dL (70-110); Potassium 4.5 mmol/L (3.5-5.5); Sodium 141 mmol/L (135-145); T4, Free (Free Thyroxine) 1.47 ng/dL (0.80-1.80); Total Protein 5.9 g/dL (6.2-8.2)
== END | disposition home or self-care (01) ==
LOC: LABWHC1 09:20
PROVIDERS: ATTEND Family Medicine
DX: I10 Essential (primary) hypertension (principal); E03.9 Hypothyroidism, unspecified; E55.9 Vitamin D deficiency, unspecified; E66.3 Overweight
CPT/HCPCS: 36415; 80053; 82306; 83036; 84439; 84443; 85027

== ENCOUNTER → 2024-09-29 | Outpatient (CLI) | payer BC ==
--- NOTE | 2024-09-29 11:10 | MM ---
Reason for Exam: Follow-up at short interval from prior study. Last screening mammogram was performed 5 month(s) ago. Patient History: Menarche at age 10. First Full-Term at age 19. Left ovary removed at age 23. Right ovary removed at age 23. Hysterectomy at age 23. Postmenopausal. Other cancer, age 46. Maternal cousin had breast cancer, age 40. Maternal aunt had breast cancer, age 34. Maternal aunt had breast cancer. Mother had breast cancer, age 55. Risk Values: Fabiola 5 year model risk: 2.8%. NCI Lifetime model risk: 13.2%. Prior Study Comparison: 03/14/2018 Bilateral Screening Mammogram, [facility]. 07/25/2022 Bilateral MG 3D screening mammo w/cad, [facility]. 04/22/2024 Bilateral MG 3D diag mammo w/cad [facility], [facility]. Tissue Density: Left: There are scattered areas of fibroglandular density. Findings: Analyzed By CAD. No significant change from prior exam. The patient indicates few episodes of milky nipple discharge and one episode of green nipple discharge in the interval. No suspicious clear/bloody discharge. Overall Assessment: Incomplete: need additional imaging evaluation, BI-RAD 0 Management: Diagnostic Breast Ultrasound of the left breast. [facility], , 09/29/2024 10:44 AM. Electronically signed and approved by: Noel العراقي M.D. Radiologist
--- NOTE | 2024-09-29 11:30 | USB ---
Reason for Exam: Follow-up at short interval from prior study. Patient History: Menarche at age 10. First Full-Term at age 19. Left ovary removed at age 23. Right ovary removed at age 23. Hysterectomy at age 23. Postmenopausal. Other cancer, age 46. Maternal cousin had breast cancer, age 40. Maternal aunt had breast cancer, age 34. Maternal aunt had breast cancer. Mother had breast cancer, age 55. Risk Values: Fabiola 5 year model risk: 2.8%. NCI Lifetime model risk: 13.2%. Technique: Method: Targeted. Prior Study Comparison: 03/14/2018 Bilateral Screening Mammogram, [facility]. 07/25/2022 Bilateral MG 3D screening mammo w/cad, [facility]. 04/22/2024 Bilateral MG 3D diag mammo w/cad [facility], [facility]. Findings: The medial section of the breast of the left breast, the axilla of the left breast and the retroareolar of the left breast were scanned. Targeted ultrasound subareolar and periareolar left breast with particular attention to the 9:00 position. Additional scanning of the axilla. Redemonstrated at the 9:00 position, 2 cm from the nipple, there is a tiny cyst currently measuring 5 mm versus 6 cm, previously. Minimal mural density, probably debris is unchanged and suggests a benign etiology. No other solid or cystic lesion or axillary adenopathy. Overall Assessment: Benign, BI-RAD 2 Management: Screening Mammogram of both breasts in 7 months. Back on schedule. Patient should monitor for any suspicious clear/bloody spontaneous nipple discharge. A clinical breast exam by your physician is recommended on an annual basis and results should be correlated with mammographic findings. This exam should not preclude additional follow-up of suspicious palpable abnormalities. Results were given to the patient verbally at the time of exam. [facility], , 09/29/2024 11:27 AM. Electronically signed and approved by: Noel العراقي M.D. Radiologist
== END | disposition home or self-care (01) ==
LOC: RADMAMWWP 10:15
PROVIDERS: ATTEND Student in an Organized Health Care Education/Training Program
DX: R92.2 Inconclusive mammogram (principal); R92.322 Mammographic fibroglandular density, left breast; Z78.0 Asymptomatic menopausal state; Z80.3 Family history of malignant neoplasm of breast
CPT/HCPCS: 77061; 77065